=== PATIENT | female | born 1960 | race Caucasian/White ===

== ENCOUNTER 2016-09-11 23:40 | Inpatient (IN) | payer OTHER ==
[~2016-09-11] VITALS: Ht 170.2 cm; Wt 105.0 kg
[~2016-09-11 23:40] MED LIST: ASPI81TA11 PO; DILA2TAB2 PO; DOLO10TA PO; GLIP5 PO; LORA-474 PO; LOVA40TA PO; OMEP40CA2 PO; OXYC1TAB36 PO; THERM PO; WHEEMIS3; [UNRECOGNIZED DRUG - CODE] TOPICAL; [UNRECOGNIZED DRUG - OTHER]
[2016-09-11 23:42] VITALS: BP 181/106; PULSE 95; RESP 16; TEMP 98.6; O2SAT 100
[2016-09-12] VITALS (7 sets, daily range): BP systolic 114–151; BP diastolic 57–82; PULSE 67–81; RESP 16–20; TEMP 97.6–98.8; O2SAT 94–100
[2016-09-12 02:04] LABS: BACTERIA, URINE RARE /hpf; BLOOD, URINE SMALL (NEG); GLUCOSE,URINE NEG (NEG); HYALINE CAST, URINE 2 /lpf (RARE); KETONE, URINE NEG (NEG); MUCUS URINE FEW /lpf (OCC); NITRITE,URINE NEG (NEG); SQUAMOUS EPITHELIAL CELL URINE 4 /hpf (0-5); URINE COLOR YELLOW (YELLW/STRAW)
[2016-09-12 02:05] LABS: COMMENT (UR) CULTURE INDICATED; CULTURE IF INDICATED CULTURE INDICATED
[2016-09-12] MEDS ORDERED: PIPERACIL-TAZO 4.5 GM PREMIX 100 ML IV STA (02:50)
[2016-09-12] MEDS ORDERED: CLINDAMYCIN INJ 900 MG in SODIUM CHLORIDE 0.9% INJ 100 ML IV STA (02:50)
[2016-09-12] MEDS ORDERED: SODIUM CHLOR 0.9% 1000 ML INJ 1,000 ML IV ONE (02:50)
[2016-09-12] MEDS ORDERED: VANCOMYCIN INJ 1,000 MG in SODIUM CHLOR 0.9% 250 ML INJ 250 ML IV STA (02:50)
[2016-09-12] MEDS ORDERED: MORP1TAB24 PO ×2 (02:53)
[2016-09-12] MEDS ORDERED: DICL50TA PO (02:53)
[2016-09-12] MEDS ORDERED: ONDANSETRON HCL 4 MG/2 ML VIAL IV ONE (03:00)
[2016-09-12] MEDS ORDERED: HYDROmorphone HCL PF 1 MG/ML VIAL IV ONE (03:00)
--- NOTE | 2016-09-12 03:00 | PD ---
HPI Chief Complaint: Abdominal Pain Time Seen by Provider: 02:50 Travel History International Travel<30 days: No Contact w/Intl Traveler<30days: No Traveled to known affect area: No History of Present Illness HPI 55-year-old female with history of diabetes, right abdominal wall necrotizing fasciitis status post resection by Dr. Caballero, has finished several courses of antibiotics, here because she states that she started having abdominal pain over the last several days, nausea, vomiting, and has noticed several spots of inflammation, questionable abscess on her right groin and thigh area. She denies any fevers or other issues. She states the pain is currently an 8 out of 10. Modifying Factors: None Associated Signs & Symptoms: Abdominal pain, nausea, vomiting, right groin area questionable abscess Risk Factors: Previous history of necrotizing fasciitis of the right pelvis area PFSH Past Medical History Arthritis: Yes (osteoarthritis of both knees & RT HIP) Asthma: No Autoimmune Disease: No Blood Disorders: No Anxiety: Yes Depression: No Heart Rhythm Problems: No Cancer: No Cardiovascular Problems: Yes High Cholesterol: Yes Chest Pain: No Congestive Heart Failure: No COPD: No Diabetes: Yes Patient Takes Glucophage: No Diminished Hearing: No Endocrine: Yes Genitourinary: Yes (kidney stones) Hepatitis: No Herniated Disk: Yes (L3) Hypertension: Yes (NOT TAKING MEDS) Immune Disorder: No Kidney Stones: Yes Medical other: Yes (ELEVATED CHOLESTEROL) Musculoskeletal: Yes (Right hip) Neurologic: No Psychiatric: No Reproductive: No Respiratory: No Sleep Apnea: No Thyroid Disease: No ?: Not Menopausal: Yes Past Surgical History Abdominal Surgery: Yes (GALLBLADDER REMOVAL 1991) AICD: No Body Medical Devices: right kidney stent Cardiac Surgery: No Cholecystectomy: Yes Ear Surgery: No Endocrine Surgery: No Eye Surgery: No Genitourinary Surgery: Yes (LITHOTRIPSY,URETEROSCOPY 12/2012, SWL 03/2013) Gynecologic Surgery: No Joint Replacement: No Oral Surgery: Yes (Teeth extracted) Pacemaker: No Thoracic Surgery: No Other Surgery: Yes (LITHOTRIPSY DONE 12/13/12, RIGHT ABDOMEN I&D) Social History Alcohol Use: No Tobacco Use: Yes (1/2-1PPD) Substance Use: No Allergies-Medications (Allergen,Severity, Reaction): Coded Allergies: Tinactin (Unverified Allergy, Severe, 09/12/16) TONGUE LIPS THROAT SWELLING Reported Meds & Prescriptions Reported Meds & Active Scripts Active Isotonic Gentamicin 1.2-0.9 mg/ml-% (Gentamicin in Saline) 1 Inj Inj 2 Injection TOPICAL DAILY To flush the abdominal wound with the antibiotic as part of the dressing change. Thera M Plus (Multivitamins/Minerals Therapeutic) 1 Tab 1 Tab PO Q12HR Glucotrol (Glipizide) 5 Mg Tab 5 Mg PO BID@08,16 Omeprazole 40 Mg Cap 40 Mg PO DAILY Lovastatin 40 Mg Tab 40 Mg PO HS Ativan (Lorazepam) 1 Mg Tab 1 Mg PO Q8HR PRN Wheelchair (Device) 1 Mis Mis 1 Ea .ROUTE DIRECTED [syringes 0.5 ml 31 g] ga Bd ultra fine pen needle 0.8mmx 31g, lancets, and test strips Reported Morphine ER (Morphine Sulfate) 15 Mg Tab 15 Mg PO TID Diclofenac Potassium 50 Mg Tab 100 Mg PO BID Morphine ER (Morphine Sulfate) 15 Mg Tab 15 Mg PO BID Review of Systems Except as stated in HPI: all other systems reviewed are Neg Physical Exam Narrative GENERAL: Well-nourished, well-developed middle age white female patient in mild distress. Awake and oriented 3. SKIN: Warm and dry. Right upper thigh, right groin area with areas of induration and mild tenderness on palpation of the inner thigh. There is a 3 cm area of ulceration with whitish eschar, tender to palpation. HEAD: Normocephalic. EYES: No scleral icterus. No injection or drainage. NECK: Supple, trachea midline. CARDIOVASCULAR: Regular rate and rhythm without murmurs, gallops, or rubs. RESPIRATORY: Breath sounds equal bilaterally. No accessory muscle use. GASTROINTESTINAL: Abdomen soft, diffusely tender, right lower quadrant and pelvic area previous surgical site looks clean, dry, healing, with no surrounding erythema, nondistended. MUSCULOSKELETAL: No cyanosis, or edema. BACK: Nontender without obvious deformity. No CVA tenderness. Data Data Last Documented VS Vital Signs Date Time Temp Pulse Resp B/P Pulse Ox O2 Delivery O2 Flow Rate FiO2 09/11/16 23:42 98.6 95 16 181/106 100 Orders Urinalysis - C+S If Indicated (09/12/16 01:24) Urine Culture (09/12/16 01:40) Complete Blood Count With Diff (09/12/16 02:50) Comprehensive Metabolic Panel (09/12/16 02:50) Lactic Acid Sepsis Protocol (09/12/16 02:50) Blood Culture (09/12/16 02:50) Wound Culture And Gram Stain (09/12/16 02:50) Blood Glucose (09/12/16 02:50) Ecg Monitoring (09/12/16 02:50) Iv Access Insert/Monitor (09/12/16 02:50) Oximetry (09/12/16 02:50) Oxygen Administration (09/12/16 02:50) Hydromorphone Pf Inj (Dilaudid Pf Inj) (09/12/16 03:00) Ondansetron Inj (Zofran Inj) (09/12/16 03:00) Piperacil-Tazo 4.5 Gm Premix (Zosyn 4.5 (09/12/16 02:50) Clindamycin Inj (Cleocin Inj) (09/12/16 02:50) Vancomycin Inj (Vancomycin Inj) (09/12/16 02:50) Sodium Chlor 0.9% 1000 Ml Inj (Ns 1000 M (09/12/16 02:50) Ct Abd/Pel W Iv Contrast(Rout) (09/12/16 02:50) Iodixanol 320 Inj (Rad Ct) (Visipaque 32 (09/12/16 04:34) Admit Order (Ed Use Only) (09/12/16 05:05) Place In Observation (09/12/16 ) Vital Signs (Adult) Q4H (09/12/16 05:05) Activity Oob With Assistance (09/12/16 05:05) Intake + Output IKER.QSHIFT (09/12/16 05:05) Diet 1800 Ada Cons Carb (09/12/16 Breakfast) Diet Heart Healthy (09/12/16 Breakfast) Sodium Chloride 0.9% Flush (Ns Flush) (09/12/16 05:15) Sodium Chloride 0.9% Flush (Ns Flush) (09/12/16 09:00) Ondansetron Inj (Zofran Inj) (09/12/16 05:15) Basic Metabolic Panel (Bmp) (09/13/16 06:00) Complete Blood Count With Diff (09/13/16 06:00) Case Management Consult (09/12/16 05:05) Enoxaparin Inj (Lovenox Inj) (09/12/16 09:00) Naloxone Inj (Narcan Inj) (09/12/16 05:15) Bedside Glucose IKER.AC&HS (09/12/16 05:07) ^ Blood Glucose Goal (Criteria (09/12/16 05:07) ^ Hypoglycemia 51 - 69 Mg/Dl (09/12/16 05:07) ^ Hypoglycemia 50 Mg/Dl Or < (09/12/16 05:07) ^ Notify Dr: Other (09/12/16 05:07) Dextrose 50% In Patricia (Vial) Inj (D50w (Vi (09/12/16 05:15) Glucagon Inj (Glucagon Inj) (09/12/16 05:15) Insulin Aspart Supplemtl Scale (Novolog (09/12/16 07:00) Vancomycin Consult Pharmacy (Vancomycin (09/12/16 05:15) Piperacil-Tazo 4.5 Gm Premix (Zosyn 4.5 (09/12/16 09:00) Morphine Inj (Morphine Inj) (09/12/16 05:15) Labs Laboratory Tests Test 09/12/16 09/12/16 01:40 02:54 Urine Color YELLOW Urine Turbidity CLEAR Urine pH 6.0 Urine Specific Corry 1.012 Urine Protein TRACE mg/dL Urine Glucose (UA) NEG mg/dL Urine Ketones NEG mg/dL Urine Occult Blood SMALL Urine Nitrite NEG Urine Bilirubin NEG Urine Urobilinogen LESS THAN 2.0 MG/DL Urine Leukocyte Esterase MOD Urine RBC 1 /hpf Urine WBC 11 /hpf Urine Squamous Epithelial 4 /hpf Cells Urine Amorphous Sediment RARE Urine Bacteria RARE /hpf Urine Hyaline Casts 2 /lpf Urine Mucus FEW /lpf Microscopic Urinalysis Comment CULTURE INDICATED White Blood Count 15.4 TH/MM3 Red Blood Count 6.10 MIL/MM3 Hemoglobin 13.9 GM/DL Hematocrit 43.4 % Mean Corpuscular Volume 71.2 FL Mean Corpuscular Hemoglobin 22.8 PG Mean Corpuscular Hemoglobin 32.1 % Concent Red Cell Distribution Width 18.2 % Platelet Count 456 TH/MM3 Mean Platelet Volume 8.5 FL Neutrophils (%) (Auto) 72.7 % Lymphocytes (%) (Auto) 20.4 % Monocytes (%) (Auto) 4.7 % Eosinophils (%) (Auto) 1.3 % Basophils (%) (Auto) 0.9 % Neutrophils # (Auto) 11.2 TH/MM3 Lymphocytes # (Auto) 3.1 TH/MM3 Monocytes # (Auto) 0.7 TH/MM3 Eosinophils # (Auto) 0.2 TH/MM3 Basophils # (Auto) 0.1 TH/MM3 CBC Comment AUTO DIFF Differential Comment AUTO DIFF CONFIRMED Platelet Estimate HIGH Platelet Morphology Comment NORMAL Ovalocytes 1+ Sodium Level 134 MEQ/L Potassium Level 4.0 MEQ/L Chloride Level 98 MEQ/L Carbon Dioxide Level 24.9 MEQ/L Anion Gap 11 MEQ/L Blood Urea Nitrogen 23 MG/DL Creatinine 1.40 MG/DL Estimat Glomerular Filtration 39 ML/MIN Rate Random Glucose 173 MG/DL Lactic Acid Level 1.3 mmol/L Calcium Level 9.7 MG/DL Total Bilirubin 0.4 MG/DL Aspartate Amino Transf 18 U/L (AST/SGOT) Alanine Aminotransferase 38 U/L (ALT/SGPT) Alkaline Phosphatase 127 U/L Total Protein 9.8 GM/DL Albumin 4.1 GM/DL MDM Medical Decision Making Medical Screen Exam Complete: Yes Emergency Medical Condition: Yes Medical Record Reviewed: Yes Interpretation(s) Laboratory Tests Test 09/12/16 09/12/16 01:40 02:54 Urine Occult Blood SMALL (NEG) Urine Leukocyte Esterase MOD (NEG) Urine WBC 11 /hpf (0-5) Urine Bacteria RARE /hpf (NONE) Urine Mucus FEW /lpf (OCC) White Blood Count 15.4 TH/MM3 (4.0-11.0) Red Blood Count 6.10 MIL/MM3 (4.00-5.30) Mean Corpuscular Volume 71.2 FL (80.0-100.0) Mean Corpuscular Hemoglobin 22.8 PG (27.0-34.0) Red Cell Distribution Width 18.2 % (11.6-17.2) Platelet Count 456 TH/MM3 (150-450) Neutrophils (%) (Auto) 72.7 % (16.0-70.0) Neutrophils # (Auto) 11.2 TH/MM3 (1.8-7.7) Platelet Estimate HIGH (NORMAL) Ovalocytes 1+ (NORMAL) Sodium Level 134 MEQ/L (136-145) Blood Urea Nitrogen 23 MG/DL (7-18) Creatinine 1.40 MG/DL (0.50-1.00) Estimat Glomerular Filtration 39 ML/MIN (>89) Rate Random Glucose 173 MG/DL (74-106) Alkaline Phosphatase 127 U/L (45-117) Total Protein 9.8 GM/DL (6.4-8.2) Last 24 hours Impressions Abdomen/Pelvis CT 09/12/16 0250 Signed Impressions: Service Date/Time: Monday, September 12, 2016 04:21 - CONCLUSION: 1. Interval resolution of bilateral pleural effusions with concomitant atelectatic changes. Lung bases are now clear 2. Stable 4 cm mass lesion in the left adrenal gland. 3. Asymmetry of the kidneys with the left larger than the right. This may represent some vascular compromise to the right kidney. There is stable cortical scarring in both kidneys. 4. Findings a previous resection of the subcutaneous tissues in the right lower abdominal quadrant. This likely represents the area of patient's reported prior necrotizing fasciitis. No active disease. Nothing acute to explain current clinical symptoms. Akira Mann MD Differential Diagnosis Abdominal pains, nausea, vomiting, right groin area ulcerated areasabscess versus infected skin ulcers versus acute intra-abdominal processes versus sepsis Narrative Course appears to have some underlying cellulitis of the right thigh area. Lab work shows significant leukocytosis. IV antibiotics were initiated after cultures were drawn. CAT scan of the abdomen did not reveal any signs of acute intra-abdominal processes. At this point, case was discussed with Dr. Zavala for admission for further treatment. Sepsis Criteria SIRS Criteria (2 or more): Heart rate over 90, WBC > 15951, < 4000 or > 10% bands Sepsis Criteria (SIRS+source): Infect source susp/known Criteria Outcome: Meets sepsis criteria Diagnosis Primary Impression: Sepsis Additional Impressions: UTI (urinary tract infection) Cellulitis of right thigh Admitting Information Admitting Physician Requests: Admit Shawanda De La Torre MD Sep 12, 2016 03:00
[2016-09-12 03:13] LABS: AUTOMATED NEUTROPHIL # 11.2 TH/MM3 (1.8-7.7); BASOPHIL # 0.1 TH/MM3 (0-0.2); BASOPHIL % 0.9 % (0.0-2.0); EOSINOPHIL # 0.2 TH/MM3 (0-0.4); EOSINOPHIL % 1.3 % (0.0-4.0); HEMATOCRIT 43.4 % (35.0-46.0); LYMPH % 20.4 % (9.0-44.0); LYMPHOCYTE # 3.1 TH/MM3 (1.0-4.8); MEAN CELL VOLUME 71.2 FL (80.0-100.0); MEAN CORPUSCULAR HEMOGLOBIN 22.8 PG (27.0-34.0); MEAN CORPUSCULAR HGB CONC 32.1 % (32.0-36.0); MONO % 4.7 % (0.0-8.0); NEUT % 72.7 % (16.0-70.0); PLATELET COUNT 456 TH/MM3 (150-450); RED CELL DISTRIBUTION WIDTH 18.2 % (11.6-17.2); WHITE BLOOD COUNT 15.4 TH/MM3 (4.0-11.0)
[2016-09-12 03:14] LABS: HEMO FLAGS AUTO DIFF
[2016-09-12 03:38] LABS: ALT (GPT) 38 U/L (10-53); ANION GAP 11 MEQ/L (5-15); AST (GOT) 18 U/L (15-37); BICARBONATE 24.9 MEQ/L (21.0-32.0); BLOOD UREA NITROGEN 23 MG/DL (7-18); CHLORIDE 98 MEQ/L (98-107); GLOMERULAR FILTRATION RATE 39 ML/MIN (>89); SODIUM (NA) 134 MEQ/L (136-145)
[2016-09-12 03:40] LABS: ALKALINE PHOSPHATASE 127 U/L (45-117); TOTAL BILIRUBIN ADULT 0.4 MG/DL (0.2-1.0)
[2016-09-12 04:09] LABS: OVALOCYTES 1+ (NORMAL); PLATELET ESTIMATE SMEAR HIGH (NORMAL); PLATELET MORPHOLOGY NORMAL (NORMAL); SCAN/DIFF AUTO DIFF CONFIRMED
[2016-09-12] MEDS ORDERED: IODIXANOL 320 MG/ML 10 ML VIAL (for Rad CT) IV ONE (04:34)
--- NOTE | 2016-09-12 04:56 | RADRPT ---
EXAM DATE/TIME: 09/12/2016 04:21 [facility] COMPARISON: CT ABDOMEN & PELVIS W CONTRAST, May 15, 2016, 17:26. INDICATIONS : Right thigh/groin pain with ulcer, previous right lower quadrant necrotizing fascitis. IV CONTRAST: 50 cc Visipaque (iodixanol) IV ORAL CONTRAST: No oral contrast ingested. RADIATION DOSE: 18.74 CTDIvol (mGy) MEDICAL HISTORY : Cardiovascular disease. Hypertension. Renal calculi.diabetes SURGICAL HISTORY : Cholecystectomy. lithotripsy ENCOUNTER: Initial ACUITY: 3 days PAIN SCALE: 8/10 LOCATION: Right groin TECHNIQUE: Volumetric scanning of the abdomen and pelvis was performed. Using automated exposure control and ad justment of the mA and/or kV according to patient size, radiation dose was kept as low as reasonably achievable to obtain optimal diagnostic quality images. FINDINGS: LOWER LUNGS: Previous effusions with atelectasis have resolved. Lung bases are now clear LIVER: Homogeneous density without lesion. There is no dilation of the biliary tree. No calcified gallston es. SPLEEN: Normal size without lesion. PANCREAS: Within normal limits. KIDNEYS: Asymmetry of the kidneys with the left larger than the right. Bilateral renal cortical scarring. ADRENAL GLANDS: Stable 4 cm mass lesion in the left adrenal gland. The right adrenal gland is radiographically normal VASCULAR: There is no aortic aneurysm. BOWEL/MESENTERY: The stomach, small bowel, and colon demonstrate no acute abnormality. There is no free intraperitone al air or fluid. ABDOMINAL WALL: Findings of prior resection of the subcutaneous tissues of the lower right anterior abdominal wall RETROPERITONEUM: There is no lymphadenopathy. BLADDER: No wall thickening or mass. REPRODUCTIVE: Within normal limits. INGUINAL: There is no lymphadenopathy or hernia. MUSCULOSKELETAL: Within normal limits for patient age. CONCLUSION: 1. Interval resolution of bilateral pleural effusions with concomitant atelectatic changes. Lung base s are now clear 2. Stable 4 cm mass lesion in the left adrenal gland. 3. Asymmetry of the kidneys with the left larger than the right. This may represent some vascular com promise to the right kidney. There is stable cortical scarring in both kidneys. 4. Findings a previous resection of the subcutaneous tissues in the right lower abdominal quadrant. T his likely represents the area of patient's reported prior necrotizing fasciitis. No active disease. Nothing acute to explain current clinical symptoms. Akira Mann MD on September 12, 2016 at 4:49 Board Certified Radiologist. This report was verified electronically.
[2016-09-12] MEDS ORDERED: NALOXONE HCL 0.4 MG/ML AMP IV PRN (05:15)
[2016-09-12] MEDS ORDERED: MORPHINE SULFATE 4 MG/ML INJ IV PUSH PRN (05:15)
[2016-09-12] MEDS ORDERED: DEXTROSE 50% IN WATER 50 ML VIAL(D50) IV PUSH PRN (05:15)
[2016-09-12] MEDS ORDERED: SODIUM CHLORIDE 0.9% FLUSH 5 ML FLUSH FLUSH PRN (05:15)
[2016-09-12] MEDS ORDERED: ONDANSETRON HCL 4 MG/2 ML VIAL IVP PRN (05:15)
[2016-09-12] MEDS ORDERED: Vancomycin Consult Pharmacy 1 EA OTHER SCH (05:15)
[2016-09-12] MEDS ORDERED: GLUCAGON 1 MG/ML VIAL OTHER PRN (05:15)
[2016-09-12] MEDS: INSULIN ASPART SUPPLEMENTAL SCALE SQ SCH ×4 (07:00→21:00)
[2016-09-12] MEDS ORDERED: cloNIDine HCL 0.1 MG TAB PO PRN (08:15)
--- NOTE | 2016-09-12 08:39 | HHI.HP ---
cc: Alex Castrejon DO [facility] Service [facility] Primary Care Physician Alex Castrejon DO Admission Diagnosis right thigh cellulitis/sepsis Diagnoses: (1) Sepsis (2) Cellulitis of right thigh (3) Abdominal pain (4) Diabetes mellitus type 2 (5) Dyslipidemia (6) Benign essential hypertension (7) Tobacco abuse Chief Complaint: Abdominal pain Travel History International Travel<30 Days: No Contact w/Intl Traveler <30 Da: No Traveled to Known Affected Are: No Sepsis Criteria SIRS Criteria (2 or more): Heart rate over 90, WBC > 62894, < 4000 or > 10% bands Sepsis Criteria (SIRS+source): Infect source susp/known Criteria Outcome: Meets sepsis criteria History of Present Illness The patient is a 55-year-old female with history of diabetes and hypertension. She was hospitalized last May for treatment of right abdominal wall necrotizing fasciitis. She had multiple surgeries and that wound has now healed. She states that over the past week she has developed worsening abdominal pain which she describes as sharp and stabbing. The pain is in the mid upper abdomen and does not radiate. She denies nausea or vomiting. She has had some constipation, but that resolved with milk of magnesia. She developed a new wound on the right upper thigh about a week ago. It is erythematous and has an ulcerative center. She also has an abscess forming on the inner upper right thigh. She reports fever, chills, and night sweats. Review of Systems Constitutional: COMPLAINS OF: Fever, Chills, Night Sweats Eyes: DENIES: Blurred vision, Vision loss Ears, nose, mouth, throat: DENIES: Hearing loss Respiratory: DENIES: Cough, Wheezing, Sputum production, Shortness of breath Cardiovascular: DENIES: Chest pain, Palpitations, Dyspnea on Exertion, Lower Extremity Edema Gastrointestinal: COMPLAINS OF: Abdominal pain, Constipation, DENIES: Diarrhea , Nausea, Vomiting Genitourinary: DENIES: Urinary frequency, Urinary incontinence, Urgency, Hematuria, Dysuria, Nocturia Musculoskeletal: DENIES: Joint pain, Muscle aches Integumentary: DENIES: Pruritus Hematologic/lymphatic: DENIES: Bruising Neurologic: DENIES: Headache Past Family Social History Past Medical History Diabetes mellitus type 2 Osteoarthritis History of necrotizing fasciitis Hypertension Hyperlipidemia GERD History of kidney stones Past Surgical History Lithotripsy 2012 Cholecystectomy 1991 Ureteroscopy with stent placement 2012 Tooth extraction Incision and drainage with wide debridement of the flanks, pannus, labia with wound VAC placement 2016 Reported Medications Isotonic Gentamicin 1.2-0.9 mg/ml-% (Gentamicin in Saline) 1 Inj Inj 2 Injection TOPICAL DAILY To flush the abdominal wound with the antibiotic as part of the dressing change. Thera M Plus (Multivitamins/Minerals Therapeutic) 1 Tab 1 Tab PO Q12HR Glucotrol (Glipizide) 5 Mg Tab 5 Mg PO BID@08,16 Omeprazole 40 Mg Cap 40 Mg PO DAILY Lovastatin 40 Mg Tab 40 Mg PO HS Ativan (Lorazepam) 1 Mg Tab 1 Mg PO Q8HR PRN [syringes 0.5 ml 31 g] ga Bd ultra fine pen needle 0.8mmx 31g, lancets, and test strips Morphine ER (Morphine Sulfate) 15 Mg Tab 15 Mg PO TID Diclofenac Potassium 50 Mg Tab 100 Mg PO BID Morphine ER (Morphine Sulfate) 15 Mg Tab 15 Mg PO BID Allergies: Coded Allergies: Tinactin (Unverified Allergy, Severe, 09/12/16) TONGUE LIPS THROAT SWELLING Family History Diabetes Hypertension Glaucoma Social History Smokes one half pack per day. Denies alcohol or illicit drug use. Physical Exam Vital Signs Vital Signs Date Time Temp Pulse Resp B/P Pulse Ox O2 Delivery O2 Flow Rate FiO2 09/12/16 07:27 98.6 67 16 151/82 99 Room Air 09/12/16 07:27 16 09/12/16 06:00 81 16 114/67 97 09/12/16 04:00 98 Nasal Cannula 2 09/12/16 04:00 76 16 114/67 96 09/11/16 23:42 98.6 95 16 181/106 100 Physical Exam GENERAL: Obese female in no acute distress. HEENT: Normocephalic, atraumatic. Pupils equal, round and reactive. Extraocular movements intact. No scleral icterus. No injection or drainage. Oropharynx is clear. Mucous membranes are moist. CARDIOVASCULAR: Regular rate and rhythm without murmurs, gallops, or rubs. RESPIRATORY: Clear to auscultation. No wheezes, rales, or rhonchi. Breathing is non-labored. GASTROINTESTINAL: Abdomen soft, nondistended. Tender to palpation diffusely, worse in the midepigastric region. EXTREMITIES: No lower extremity edema. No calf tenderness. PSYCH: Alert and oriented x 3. SKIN: Healed surgical scar in the right lower abdomen. There is erythema, induration, and fluctuance of the right upper inner thigh. There is a circular lesion on the right upper thigh with an ulcerative center and surrounding erythema. Laboratory Laboratory Tests Test 09/12/16 09/12/16 01:40 02:54 Urine Color YELLOW Urine Turbidity CLEAR Urine pH 6.0 Urine Specific Cade 1.012 Urine Protein TRACE Urine Glucose (UA) NEG Urine Ketones NEG Urine Occult Blood SMALL Urine Nitrite NEG Urine Bilirubin NEG Urine Urobilinogen LESS THAN 2.0 Urine Leukocyte Esterase MOD Urine RBC 1 Urine WBC 11 Urine Squamous Epithelial 4 Cells Urine Amorphous Sediment RARE Urine Bacteria RARE Urine Hyaline Casts 2 Urine Mucus FEW Microscopic Urinalysis Comment CULTURE INDICATED White Blood Count 15.4 Red Blood Count 6.10 Hemoglobin 13.9 Hematocrit 43.4 Mean Corpuscular Volume 71.2 Mean Corpuscular Hemoglobin 22.8 Mean Corpuscular Hemoglobin 32.1 Concent Red Cell Distribution Width 18.2 Platelet Count 456 Mean Platelet Volume 8.5 Neutrophils (%) (Auto) 72.7 Lymphocytes (%) (Auto) 20.4 Monocytes (%) (Auto) 4.7 Eosinophils (%) (Auto) 1.3 Basophils (%) (Auto) 0.9 Neutrophils # (Auto) 11.2 Lymphocytes # (Auto) 3.1 Monocytes # (Auto) 0.7 Eosinophils # (Auto) 0.2 Basophils # (Auto) 0.1 CBC Comment AUTO DIFF Differential Comment AUTO DIFF CONFIRMED Platelet Estimate HIGH Platelet Morphology Comment NORMAL Ovalocytes 1+ Sodium Level 134 Potassium Level 4.0 Chloride Level 98 Carbon Dioxide Level 24.9 Anion Gap 11 Blood Urea Nitrogen 23 Creatinine 1.40 Estimat Glomerular Filtration 39 Rate Random Glucose 173 Lactic Acid Level 1.3 Calcium Level 9.7 Total Bilirubin 0.4 Aspartate Amino Transf 18 (AST/SGOT) Alanine Aminotransferase 38 (ALT/SGPT) Alkaline Phosphatase 127 Total Protein 9.8 Albumin 4.1 Date/Time Procedure Status Source Growth 09/12/16 03:30 Aerobic Blood Culture Received Blood Peripheral Pending 09/12/16 03:30 Anaerobic Blood Culture Received Blood Peripheral Pending 09/12/16 02:54 Gram Stain Received Wound Thigh Pending 09/12/16 02:54 Wound Culture Received Wound Thigh Pending 09/12/16 01:40 Urine Culture Received Urine Clean Catch Pending Result Diagram: 09/12/16 0254 09/12/16 0254 Imaging Last Impressions Abdomen/Pelvis CT 09/12/16 0250 Signed Impressions: Service Date/Time: Monday, September 12, 2016 04:21 - CONCLUSION: 1. Interval resolution of bilateral pleural effusions with concomitant atelectatic changes. Lung bases are now clear 2. Stable 4 cm mass lesion in the left adrenal gland. 3. Asymmetry of the kidneys with the left larger than the right. This may represent some vascular compromise to the right kidney. There is stable cortical scarring in both kidneys. 4. Findings a previous resection of the subcutaneous tissues in the right lower abdominal quadrant. This likely represents the area of patient's reported prior necrotizing fasciitis. No active disease. Nothing acute to explain current clinical symptoms. Akira Mann MD Assessment and Plan Assessment and Plan 1. Abdominal pain: Uncertain etiology. Patient had multiple surgeries in May of last year for necrotizing fasciitis of the flanks, pannus. 2. Sepsis: Secondary to cellulitis. Patient meets criteria with tachycardia, leukocytosis. Continue vancomycin and Zosyn. Pharmacy to dose vancomycin. 3. Right upper thigh cellulitis, abscess: IV antibiotics. Consult general surgery for likely incision and drainage. 4. Diabetes mellitus: Hold glipizide. Monitor Accu-Cheks and cover with sliding scale insulin. 5. Hypertension: Blood pressure has been intermittently elevated. Patient is not on antihypertensive medications. Clonidine available as needed. 6. Hyperlipidemia: Continue statin. 7. GERD: Continue PPI. 8. DVT prophylaxis: SCDs, CORI hose, Lovenox. 9. Acute kidney injury: Monitor BUN and creatinine. IV fluids. Code Status Full code Mikel Melo MD Sep 12, 2016 08:39
[2016-09-12] MEDS: ENOXAPARIN SODIUM 40 MG/0.4 ML SYRINGE SQ SCH (08:44)
[2016-09-12] MEDS: PIPERACIL-TAZO 4.5 GM PREMIX 100 ML IV SCH ×3 (08:45→21:39)
[2016-09-12] MEDS ORDERED: HYDROmorphone HCL PF 1 MG/ML VIAL IV PUSH PRN ×4 (09:00→15:00)
[2016-09-12] MEDS: SODIUM CHLORIDE 0.9% FLUSH 5 ML FLUSH FLUSH SCH ×2 (09:00→21:11)
[2016-09-12] MEDS: PANTOPRAZOLE SOD 40 MG DELAYED RELEASE TAB PO SCH (10:09)
[2016-09-12] MEDS: SODIUM CHLOR 0.9% 1000 ML INJ 1,000 ML IV SCH ×2 (10:09→20:10)
[2016-09-12] MEDS: MULTIVITAMINS/MINERALS THERAPEUTIC TAB PO SCH ×2 (10:09→21:11)
[2016-09-12] MEDS: DICLOFENAC SODIUM 50 MG DELAYED RELEASE TAB PO SCH ×2 (12:13→21:11)
[2016-09-12] MEDS: VANCOMYCIN INJ 2,000 MG in SODIUM CHLORID 0.9% 500 ML INJ 500 ML IV SCH (12:15)
[2016-09-12] MEDS ORDERED: HYDROmorphone HCL PF 1 MG/ML VIAL IV PUSH ONE ×2 (12:15→14:30)
[2016-09-12] MEDS ORDERED: LIDOCAINE 1%/EPINEPHrine 1:100,000 SOLN 30 ML VIAL OTHER SCH (12:45)
[2016-09-12] MEDS ORDERED: LIDOCAINE 1%/EPINEPHrine 1:100,000 SOLN 20 ML VIAL OTHER SCH (14:00)
[2016-09-12] MEDS: LORazepam 1 MG TAB PO PRN ×2 (14:07→23:29)
--- NOTE | 2016-09-12 17:17 | MB ---
cc: ROSS CASH MD DATE OF CONSULTATION: 09/12/2016 REASON FOR CONSULTATION: Right thigh abscess. HISTORY OF PRESENT ILLNESS: The patient is a 54 year-old female, multiple medical issues including diabetes, hypertension, she has a previous history and is known to have surgical service due to the extensive lower abdominal perineal necrotizing fasciitis. She underwent multiple surgeries and debridements and eventually improved from this. She was at rehab doing well and has since been discharged from there as well. She states that she presented with a new onset of; 1. Abdominal pain. 2. Right thigh pain with abscess. She was evaluated and placed on initial dose of antibiotics without much improvement. Her antibiotic regimen was changed and she subsequently has recently finished her antibiotics. She states she has developed a red, erythematous. Small lesion in the posterior thigh that continues to increase in size. This has been going on for approximately one week or so ago and it continues to get worse, have increased pain and the patient reports subjective fevers and chills. She states she is currently on diabetic medication and her sugars are actually relatively well controlled per the patient. Further she complains of some of right-sided, right upper quadrant abdominal pain. She states this pain has been going on for the last four days. Intermittent sharp pains. Worse with movement better with lying still, has some association with bleeding. She has already previously had a cholecystectomy. She denies any significant nausea, vomiting. PAST MEDICAL HISTORY 1. Arthritis. 2. Necrotizing fasciitis 3. Hypertension 4. Hyperlipidemia 5. Reflux. 6. Kidney stones. PAST SURGICAL HISTORY 1. Rectopexy. 2. Cholecystectomy. 3. Ureteroscope with stent placement. 4. Tooth extraction. 5. Incision and drainage. 6. Vac placement. 7. Multiple perineal lower abdominal debridements and surgeries for necrotizing fasciitis. MEDICATIONS See electronic medical record. ALLERGIES TINACTIN FAMILY HISTORY Diabetes, hypertension, glaucoma. SOCIAL HISTORY The patient smokes half pack and status per day denies EtOH or IVDA. REVIEW OF SYSTEMS IN GENERAL: Complains of fevers, chills. HEAD, EYES, EARS, NOSE, AND THROAT: Denies eye pain, blurry vision. RESPIRATORY: Denies cough or wheeze. CARDIOVASCULAR SYSTEM: Denies palpitations, chest pain. GASTROINTESTINAL: Complains of abdominal pain. Denies nausea or vomiting. GENITOURINARY: Denies dysuria, hematuria. MUSCULOSKELETAL: Denies myalgias. Complains of arthralgias. INTEGUMENT: Complaints of abscess thigh. NEUROLOGIC: Denies easy bruising, bleeding. NEUROLOGIC: Denies headaches or numbness. PSYCHIATRIC: Denies change mood, . IN GENERAL: The patient is in acute distress. PHYSICAL EXAMINATION: IN GENERAL: The patient is in no acute distress. VITAL SIGNS: Temperature 98.6, pulse 81, respirations 16, blood pressure 114/67, saturation 100%. HEAD, EYES, EARS, NOSE, AND THROAT: Pupils equal, round, reactive to light and accommodation, Oral tract. NECK: Supple. Trachea midline. RESPIRATORY: Bilateral expansion. No wheeze. ABDOMEN: The abdomen is soft. Positive tenderness to palpation right upper quadrant. No rebound, no guarding, well healing with granulation tissue right lower lateral pannus area and right groin, healing, dressings in place, dry and intact. EXTREMITIES: The right lower extremity posterior medial thigh or by a 2 cm abscess cavity tenderness to palpation. Positive edema. No evidence of drainage. Moving all the extremities warm, well-perfused. NEUROLOGIC: GCS of 15, 5/5 motor. INTEGUMENT: Healing wound as described right sided pannus area, granulation abscess, right lower extremity, ulceration anterior right thigh. PSYCHIATRIC: Good insight good judgment. GENITOURINARY: healed right labial scarring. LABORATORY AND DIAGNOSTIC DATA WBC of 15.4, hemoglobin 32.1, Hematocrit 43.4, platelet count 456, sodium 134. Potassium 0.10, chloride 78, BUN 28, creatinine 1.4. <<6:36>> 48, alkaline phosphatase 137. Albumin 4.1, Urinalysis regular nitrate, <<6:41>> white blood cell. RADIOLOGY CT abdomen and pelvis <<7:06>> resolution of fusions, 4 cm stable. Left adrenal gland mass. Small right kidney, previous resection of the subcutaneous tissue right lower quadrant. Extremity abscess not viewable on CT of the abdomen and pelvis. ASSESSMENT 55-year-old female history of necrotizing fasciitis presents with right thigh abscess, abdominal pain. PLAN After full clinical radiologic laboratory workup the patient with leukocytosis and abscess cavity and the right lower extremity at this point agree with IV antibiotics pain control. We will plan to the to the incision drainage at bedside and the PACU. Discussed with the patient the risk of eight and the risk. Progressing to necrotizing fasciitis however, this is likely uncommon does not appear to be and necrotizing fasciitis at this time. Again we will attempt drainage at bedside. I have discussed with the patient in detail. PROCEDURE NOTE The patient was prepped and draped in usual sterile fashion and time-out done stating correct patient, procedure and surgical site. PREOPERATIVE DIAGNOSIS Right thigh abscess. POSTOPERATIVE DIAGNOSIS Right thigh abscess. PROCEDURE PREFORMED: A bedside incision and drainage of abscess. ANESTHESIA 1% lidocaine with epinephrine [address] Ross Cash MULTI SITE LEASING CONSULTANT: None. COMPLICATIONS: None. WOUND: Wound classification dirty SPECIMENS Purulent material sent for microbiology INDICATION The patient 52-year-old female history of necrotizing fasciitis presents with new onset of recurrent right lower extremity abscess. Discussed with the patient regarding operative intervention in the OR versus bedside debridement. The patient elects to undergo a bedside debridement. We will continue as planned. PROCEDURE IN DETAIL The patient was again prepped and draped in sterile fashion to towels were placed around the wound. Lidocaine and anesthetic was given, 1 mg of Dilaudid was also given. He had a small incision made in abscess cavity with extruding purulent material This was cultured, swabbed and sent to microbiology irrigation process was used to irrigate the cavity. This was done until the fluid was clear. The cavity was then packed with probiotic 4x4 dressing. Hemostasis obtained. The patient tolerated procedure and there is no complication. FINDINGS Small cavity with purulent material. MD BECKIE Farmer/marty /2:02 PM /4:16 PM
[2016-09-12] MEDS: oxyCODONE/ACETAMINOPHEN 5 MG/325 MG TAB PO PRN (17:34)
[2016-09-12] MEDS: PRAVASTATIN SOD 40 MG TAB PO SCH (21:11)
[2016-09-12] MEDS: HYDROmorphone HCL PF 1 MG/ML VIAL IV PUSH PRN (21:12)
[2016-09-13] VITALS (7 sets, daily range): BP systolic 120–152; BP diastolic 60–80; PULSE 66–87; RESP 14–20; TEMP 97–98.8; O2SAT 96–100
[2016-09-13] MEDS: PIPERACIL-TAZO 4.5 GM PREMIX 100 ML IV SCH ×4 (02:30→19:59)
[2016-09-13] MEDS: HYDROmorphone HCL PF 1 MG/ML VIAL IV PUSH PRN ×2 (02:31→23:58)
[2016-09-13 05:30] LABS: AUTOMATED NEUTROPHIL # 6.6 TH/MM3 (1.8-7.7); BASOPHIL # 0.1 TH/MM3 (0-0.2); BASOPHIL % 1.1 % (0.0-2.0); EOSINOPHIL # 0.2 TH/MM3 (0-0.4); EOSINOPHIL % 2.6 % (0.0-4.0); HEMATOCRIT 36.2 % (35.0-46.0); LYMPH % 20.1 % (9.0-44.0); LYMPHOCYTE # 1.9 TH/MM3 (1.0-4.8); MEAN CELL VOLUME 72.2 FL (80.0-100.0); MEAN CORPUSCULAR HEMOGLOBIN 22.5 PG (27.0-34.0); MEAN CORPUSCULAR HGB CONC 31.1 % (32.0-36.0); MONO % 6.3 % (0.0-8.0); NEUT % 69.9 % (16.0-70.0); PLATELET COUNT 307 TH/MM3 (150-450); RED BLOOD COUNT 5.01 MIL/MM3 (4.00-5.30); WHITE BLOOD COUNT 9.4 TH/MM3 (4.0-11.0)
[2016-09-13 05:50] LABS: BICARBONATE 24.5 MEQ/L (21.0-32.0); POTASSIUM 4.7 MEQ/L (3.5-5.1)
[2016-09-13] MEDS: INSULIN ASPART SUPPLEMENTAL SCALE SQ SCH ×4 (06:02→20:00)
[2016-09-13] MEDS: VANCOMYCIN INJ 2,000 MG in SODIUM CHLORID 0.9% 500 ML INJ 500 ML IV SCH ×2 (06:12→23:58)
[2016-09-13 06:16] LABS: HEMO FLAGS AUTO DIFF
[2016-09-13 07:58] LABS: SCAN/DIFF AUTO DIFF CONFIRMED
[2016-09-13] MEDS: SODIUM CHLOR 0.9% 1000 ML INJ 1,000 ML IV SCH ×2 (08:05→19:59)
[2016-09-13] MEDS: SODIUM CHLORIDE 0.9% FLUSH 5 ML FLUSH FLUSH SCH ×2 (09:00→19:59)
--- NOTE | 2016-09-13 09:47 | MR ---
cc: ROSS CASH MD DATE: 09/12/2016 PROCEDURE NOTE The patient was prepped and draped in usual sterile fashion and time-out done stating correct patient, procedure and surgical site. PREOPERATIVE DIAGNOSIS Right thigh abscess. POSTOPERATIVE DIAGNOSIS Right thigh abscess. PROCEDURE PREFORMED: A bedside incision and drainage of abscess. ANESTHESIA 1% lidocaine with epinephrine [address] Ross Cash CREMATORY OPERATOR: None. COMPLICATIONS: None. WOUND: Wound classification dirty SPECIMENS Purulent material sent for microbiology INDICATION The patient 52-year-old female history of necrotizing fasciitis presents with new onset of recurrent right lower extremity abscess. Discussed with the patient regarding operative intervention in the OR versus bedside debridement. The patient elects to undergo a bedside debridement. We will continue as planned. PROCEDURE IN DETAIL The patient was again prepped and draped in sterile fashion to towels were placed around the wound. Lidocaine and anesthetic was given, 1 mg of Dilaudid was also given. He had a small incision made in abscess cavity with extruding purulent material This was cultured, swabbed and sent to microbiology irrigation process was used to irrigate the cavity. This was done until the fluid was clear. The cavity was then packed with probiotic 4x4 dressing. Hemostasis obtained. The patient tolerated procedure and there is no complication. FINDINGS Small cavity with purulent material. MD CAMMY FarmerN/fadia /2:02 PM /9:39 AM .2
--- NOTE | 2016-09-13 09:47 | MB ---
cc: ANTONINO BOB MD DATE OF CONSULTATION: 09/12/2016 REASON FOR CONSULTATION: Right thigh abscess. HISTORY OF PRESENT ILLNESS: The patient is a 54 year-old female, multiple medical issues including diabetes, hypertension, she has a previous history and is known to have surgical service due to the extensive lower abdominal perineal necrotizing fasciitis. She underwent multiple surgeries and debridements and eventually improved from this. She was at rehab doing well and has since been discharged from there as well. She states that she presented with a new onset of; 1. Abdominal pain. 2. Right thigh pain with abscess. She was evaluated and placed on initial dose of antibiotics without much improvement. Her antibiotic regimen was changed and she subsequently has recently finished her antibiotics. She states she has developed a red, erythematous. Small lesion in the posterior thigh that continues to increase in size. This has been going on for approximately one week or so ago and it continues to get worse, have increased pain and the patient reports subjective fevers and chills. She states she is currently on diabetic medication and her sugars are actually relatively well controlled per the patient. Further she complains of some of right-sided, right upper quadrant abdominal pain. She states this pain has been going on for the last four days. Intermittent sharp pains. Worse with movement better with lying still, has some association with bleeding. She has already previously had a cholecystectomy. She denies any significant nausea, vomiting. PAST MEDICAL HISTORY 1. Arthritis. 2. Necrotizing fasciitis 3. Hypertension 4. Hyperlipidemia 5. Reflux. 6. Kidney stones. PAST SURGICAL HISTORY 1. Rectopexy. 2. Cholecystectomy. 3. Ureteroscope with stent placement. 4. Tooth extraction. 5. Incision and drainage. 6. Vac placement. 7. Multiple perineal lower abdominal debridements and surgeries for necrotizing fasciitis. MEDICATIONS See electronic medical record. ALLERGIES TINACTIN FAMILY HISTORY Diabetes, hypertension, glaucoma. SOCIAL HISTORY The patient smokes half pack and status per day denies EtOH or IVDA. REVIEW OF SYSTEMS IN GENERAL: Complains of fevers, chills. HEAD, EYES, EARS, NOSE, AND THROAT: Denies eye pain, blurry vision. RESPIRATORY: Denies cough or wheeze. CARDIOVASCULAR SYSTEM: Denies palpitations, chest pain. GASTROINTESTINAL: Complains of abdominal pain. Denies nausea or vomiting. GENITOURINARY: Denies dysuria, hematuria. MUSCULOSKELETAL: Denies myalgias. Complains of arthralgias. INTEGUMENT: Complaints of abscess thigh. NEUROLOGIC: Denies easy bruising, bleeding. NEUROLOGIC: Denies headaches or numbness. PSYCHIATRIC: Denies change mood, . IN GENERAL: The patient is in acute distress. PHYSICAL EXAMINATION: IN GENERAL: The patient is in no acute distress. VITAL SIGNS: Temperature 98.6, pulse 81, respirations 16, blood pressure 114/67, saturation 100%. HEAD, EYES, EARS, NOSE, AND THROAT: Pupils equal, round, reactive to light and accommodation, Oral tract. NECK: Supple. Trachea midline. RESPIRATORY: Bilateral expansion. No wheeze. ABDOMEN: The abdomen is soft. Positive tenderness to palpation right upper quadrant. No rebound, no guarding, well healing with granulation tissue right lower lateral pannus area and right groin, healing, dressings in place, dry and intact. EXTREMITIES: The right lower extremity posterior medial thigh or by a 2 cm abscess cavity tenderness to palpation. Positive edema. No evidence of drainage. Moving all the extremities warm, well-perfused. NEUROLOGIC: GCS of 15, 5/5 motor. INTEGUMENT: Healing wound as described right sided pannus area, granulation abscess, right lower extremity, ulceration anterior right thigh. PSYCHIATRIC: Good insight good judgment. GENITOURINARY: healed right labial scarring. LABORATORY AND DIAGNOSTIC DATA WBC of 15.4, hemoglobin 32.1, Hematocrit 43.4, platelet count 456. Sodium 134, potassium 4.0, chloride 98, BUN 23, creatinine 1.4, AST 18, ALT 38, alkaline phosphatase 127, albumin 4.1, Urinalysis regular nitrate, 11 white blood cell. RADIOLOG[address] abdomen and pelvis <<7:06>> effusions, 4 cm stable. Left adrenal gland mass. Small right kidney, previous resection of the subcutaneous tissue right lower quadrant. Extremity abscess not viewable on CT of the abdomen and pelvis. ASSESSMENT 55-year-old female history of necrotizing fasciitis presents with right thigh abscess, abdominal pain. PLAN After full clinical radiologic laboratory workup the patient with leukocytosis and abscess cavity and the right lower extremity at this point agree with IV antibiotics pain control. We will plan to the to the incision drainage at bedside with packing. Discussed with the patient the risk of progressing to necrotizing fasciitis, however, this is likely uncommon does not appear to be and necrotizing fasciitis at this time. Again we will attempt drainage at bedside. I have discussed with the patient in detail. MD BECKIE Farmer/fadia /2:02 PM /9:44 AM .1
[2016-09-13] MEDS: ENOXAPARIN SODIUM 40 MG/0.4 ML SYRINGE SQ SCH (09:48)
[2016-09-13] MEDS: oxyCODONE/ACETAMINOPHEN 10 MG/325 MG TAB PO PRN ×4 (09:49→23:57)
[2016-09-13] MEDS: DICLOFENAC SODIUM 50 MG DELAYED RELEASE TAB PO SCH ×2 (09:50→19:59)
[2016-09-13] MEDS: MULTIVITAMINS/MINERALS THERAPEUTIC TAB PO SCH ×2 (09:50→19:59)
[2016-09-13] MEDS: PANTOPRAZOLE SOD 40 MG DELAYED RELEASE TAB PO SCH (09:50)
[2016-09-13] MEDS ORDERED: PNEUMOCOCCAL POLYVALENT INJ 25 MCG/0.5 ML SYR IM ONE (10:00)
[2016-09-13] MEDS: LORazepam 1 MG TAB PO PRN ×2 (11:26→19:59)
[2016-09-13] MEDS: NICOTINE 21 MG/24 HR PATCH TD SCH (15:02)
--- NOTE | 2016-09-13 16:19 | HHI.PR ---
Subjective Remarks Laying in bed comfortable, afebrile, right thigh wound act and in dressing, she is afebrile Objective Vitals Vital Signs Date Time Temp Pulse Resp B/P Pulse Ox O2 Delivery O2 Flow Rate FiO2 09/13/16 15:57 98.8 70 16 142/63 99 09/13/16 11:58 98.5 71 14 130/64 96 09/13/16 08:26 97.6 66 16 136/60 99 09/13/16 04:25 98.4 87 18 121/68 97 09/13/16 03:01 12 09/13/16 00:39 97.0 78 18 152/76 96 09/12/16 20:06 98.8 72 20 117/57 97 09/12/16 18:47 18 I/O 09/12/16 09/12/16 09/12/16 09/13/16 09/13/16 09/13/16 06:59 14:59 22:59 06:59 14:59 22:59 Intake Total 200 ml 300 ml Balance 200 ml 300 ml Intake Oral 200 ml 300 ml # Voids 1 Result Diagram: 09/13/16 0427 09/13/16 042 Imaging Last Impressions Abdomen/Pelvis CT 09/12/16 0250 Signed Impressions: Service Date/Time: Monday, September 12, 2016 04:21 - CONCLUSION: 1. Interval resolution of bilateral pleural effusions with concomitant atelectatic changes. Lung bases are now clear 2. Stable 4 cm mass lesion in the left adrenal gland. 3. Asymmetry of the kidneys with the left larger than the right. This may represent some vascular compromise to the right kidney. There is stable cortical scarring in both kidneys. 4. Findings a previous resection of the subcutaneous tissues in the right lower abdominal quadrant. This likely represents the area of patient's reported prior necrotizing fasciitis. No active disease. Nothing acute to explain current clinical symptoms. Akira Mann MD Objective Remarks GENERAL: This is a well-nourished, well-developed patient, in no apparent distress. SKIN: Right thigh packed wound and dressing as well as right groin HEAD: Atraumatic. Normocephalic. EYES: Pupils equal round and reactive. Extraocular motions intact. No scleral icterus. ENT: Nose without bleeding, or drainage, Airway patent. NECK: Trachea midline. Supple CARDIOVASCULAR: Regular rate and rhythm without murmurs, gallops, or rubs. RESPIRATORY: Fair air entry bilaterally. No wheezes, rales, or rhonchi. GASTROINTESTINAL: Abdomen soft, non-tender, nondistended. Positive bowel sounds MUSCULOSKELETAL: Extremities without clubbing, cyanosis, or edema. Pedal pulses appreciated NEUROLOGICAL: Awake and alert. Moves all extremity. Normal speech.no focal neurological deficit A/P Problem List: (1) Sepsis ICD Code: A41.9 Status: Acute (2) Cellulitis of right thigh ICD Code: L03.115 Status: Acute (3) Abdominal pain ICD Code: R10.9 Status: Acute (4) Diabetes mellitus type 2 ICD Code: 250.00 Status: Chronic (5) Dyslipidemia ICD Code: 272.8 Status: Chronic (6) Benign essential hypertension ICD Code: 401.1 Status: Chronic (7) Tobacco abuse ICD Code: Z72.0 Status: Acute Assessment and Plan 09/13/16: Stable no fever or chills, monitor culture and CBC in a.m. A/P: 1. Abdominal pain: Uncertain etiology. Patient had multiple surgeries in May of last year for necrotizing fasciitis of the flanks, pannus. 2. Sepsis: Secondary to cellulitis. Patient meets criteria with tachycardia, leukocytosis. Continue vancomycin and Zosyn. Pharmacy to dose vancomycin. 3. Right upper thigh cellulitis, abscess: IV antibiotics. Appreciate general surgery consult status post incision and drainage and packing 4. Diabetes mellitus: Hold glipizide. Monitor Accu-Cheks and cover with sliding scale insulin. 5. Hypertension: Blood pressure has been intermittently elevated. Patient is not on antihypertensive medications. Clonidine available as needed. 6. Hyperlipidemia: Continue statin. 7. GERD: Continue PPI. 8. DVT prophylaxis: SCDs, CORI ritter Lovenox. 9. Acute kidney injury: Improving creatinine trending down, Monitor BUN and creatinine. IV fluids Owen Duff MD Sep 13, 2016 16:19
--- NOTE | 2016-09-13 17:47 | HHI.PR ---
Subjective Subjective Notes no acute issues, a febrile Objective Vitals/I&O Vital Signs Date Time Temp Pulse Resp B/P Pulse Ox O2 Delivery O2 Flow Rate FiO2 09/13/16 15:57 98.8 70 16 142/63 99 09/12/16 07:27 Room Air 09/12/16 04:00 2 Labs Laboratory Tests Test 09/13/16 04:27 White Blood Count 9.4 Red Blood Count 5.01 Hemoglobin 11.3 Hematocrit 36.2 Mean Corpuscular Volume 72.2 Mean Corpuscular Hemoglobin 22.5 Mean Corpuscular Hemoglobin 31.1 Concent Red Cell Distribution Width 18.0 Platelet Count 307 Mean Platelet Volume 8.6 Neutrophils (%) (Auto) 69.9 Lymphocytes (%) (Auto) 20.1 Monocytes (%) (Auto) 6.3 Eosinophils (%) (Auto) 2.6 Basophils (%) (Auto) 1.1 Neutrophils # (Auto) 6.6 Lymphocytes # (Auto) 1.9 Monocytes # (Auto) 0.6 Eosinophils # (Auto) 0.2 Basophils # (Auto) 0.1 CBC Comment AUTO DIFF Differential Comment AUTO DIFF CONFIRMED Sodium Level 141 Potassium Level 4.7 Chloride Level 107 Carbon Dioxide Level 24.5 Anion Gap 10 Blood Urea Nitrogen 20 Creatinine 1.24 Estimat Glomerular Filtration 45 Rate Random Glucose 148 Calcium Level 9.0 Date/Time Procedure Status Source Growth 09/12/16 14:29 Gram Stain - Final Resulted Wound Thigh 09/12/16 14:29 Wound Culture - Preliminary Resulted Wound Thigh 09/12/16 03:30 Aerobic Blood Culture - Preliminary Resulted Blood Peripheral NO GROWTH IN 1 DAY 09/12/16 03:30 Anaerobic Blood Culture - Preliminary Resulted Blood Peripheral NO GROWTH IN 1 DAY 09/12/16 01:40 Urine Culture - Final Complete Urine Clean Catch 50-100,000 CFU/ML MIXED GRAM POSITIVE... Cardiovascular: Regular Lungs: Clear Abdomen: Other (healing with granulation tissue) Narrative Exam RLE Thigh- with packing, scant drainage A/P Assessment and Plan hx of nec fasc now with thigh abscess s/p I and D PLAN Reg diet pain control oob continue dressing changes will follow Ross Velásquez MD Sep 13, 2016 17:47
[2016-09-13] MEDS: PRAVASTATIN SOD 40 MG TAB PO SCH (19:58)
[2016-09-13] MEDS: REMOVE OLD NICODERM (NICOTINE) PATCH TD SCH (21:00)
[2016-09-14] MEDS: PIPERACIL-TAZO 4.5 GM PREMIX 100 ML IV SCH ×4 (02:13→20:57)
[2016-09-14] MEDS: oxyCODONE/ACETAMINOPHEN 10 MG/325 MG TAB PO PRN ×4 (04:52→20:56)
[2016-09-14] MEDS: LORazepam 1 MG TAB PO PRN ×3 (04:53→22:47)
[2016-09-14] MEDS: INSULIN ASPART SUPPLEMENTAL SCALE SQ SCH ×4 (05:00→20:56)
[2016-09-14] MEDS: SODIUM CHLORIDE 0.9% FLUSH 5 ML FLUSH FLUSH SCH ×2 (07:36→20:54)
[2016-09-14 07:45] VITALS: BP 161/73; PULSE 60; RESP 18; TEMP 98.3; O2SAT 99
[2016-09-14] MEDS: NICOTINE 21 MG/24 HR PATCH TD SCH (08:10)
[2016-09-14] MEDS: PANTOPRAZOLE SOD 40 MG DELAYED RELEASE TAB PO SCH (08:10)
[2016-09-14] MEDS: SODIUM CHLOR 0.9% 1000 ML INJ 1,000 ML IV SCH ×2 (08:10→20:57)
[2016-09-14] MEDS: ENOXAPARIN SODIUM 40 MG/0.4 ML SYRINGE SQ SCH (08:10)
[2016-09-14] MEDS: MULTIVITAMINS/MINERALS THERAPEUTIC TAB PO SCH ×2 (08:10→20:56)
[2016-09-14] MEDS: DICLOFENAC SODIUM 50 MG DELAYED RELEASE TAB PO SCH ×2 (08:10→20:56)
[2016-09-14] MEDS: HYDROmorphone HCL PF 1 MG/ML VIAL IV PUSH PRN ×3 (09:22→22:47)
[2016-09-14 11:52] VITALS: BP 154/66; PULSE 60; RESP 16; TEMP 97.7; O2SAT 98
--- NOTE | 2016-09-14 13:25 | HHI.PR ---
Subjective Remarks Sitting on the edge of the bed, stated she feels the infection is getting better Afebrile, no chest pain or short of breath Pulmonary wound culture showed group D enterococcus, we'll consult infectious disease for further antibiotic management Objective Vitals Vital Signs Date Time Temp Pulse Resp B/P Pulse Ox O2 Delivery O2 Flow Rate FiO2 09/14/16 11:52 97.7 60 16 154/66 98 09/14/16 07:45 98.3 60 18 161/73 99 09/14/16 05:55 16 09/14/16 01:04 16 09/13/16 23:22 69 120/72 97 09/13/16 19:58 77 20 147/80 100 09/13/16 15:57 98.8 70 16 142/63 99 I/O 09/13/16 09/13/16 09/13/16 09/14/16 09/14/16 09/14/16 07:00 15:00 23:00 07:00 15:00 23:00 Intake Total 300 ml Output Total 600 ml Balance 300 ml -600 ml Intake Oral 300 ml Output Urine Total 600 ml Result Diagram: 09/13/1642609/13/16426 Objective Remarks GENERAL: This is a well-nourished, well-developed patient, in no apparent distress. SKIN: Right thigh packed wound and dressing as well as right groin HEAD: Atraumatic. Normocephalic. EYES: Pupils equal round and reactive. Extraocular motions intact. No scleral icterus. ENT: Nose without bleeding, or drainage, Airway patent. NECK: Trachea midline. Supple CARDIOVASCULAR: Regular rate and rhythm without murmurs, gallops, or rubs. RESPIRATORY: Fair air entry bilaterally. No wheezes, rales, or rhonchi. GASTROINTESTINAL: Abdomen soft, non-tender, nondistended. Positive bowel sounds MUSCULOSKELETAL: Extremities without clubbing, cyanosis, or edema. Pedal pulses appreciated NEUROLOGICAL: Awake and alert. Moves all extremity. Normal speech.no focal neurological deficit A/P Problem List: (1) Sepsis ICD Code: A41.9 Status: Acute (2) Cellulitis of right thigh ICD Code: L03.115 Status: Acute (3) Abdominal pain ICD Code: R10.9 Status: Acute (4) Diabetes mellitus type 2 ICD Code: 250.00 Status: Chronic (5) Dyslipidemia ICD Code: 272.8 Status: Chronic (6) Benign essential hypertension ICD Code: 401.1 Status: Chronic (7) Tobacco abuse ICD Code: Z72.0 Status: Acute Assessment and Plan 09/13/16: Stable no fever or chills, monitor culture and CBC in a.m. 09/14/16: Afebrile, wound culture preliminary showed group B enterococcus, will continue vancomycin, will consult ID, surgery will follow when necessary, will consult PT OT and case consultant for DC planning A/P: 1. Abdominal pain: Uncertain etiology. Patient had multiple surgeries in May of last year for necrotizing fasciitis of the flanks, pannus. 2. Sepsis: Secondary to cellulitis. Patient meets criteria with tachycardia, leukocytosis. Continue vancomycin and Zosyn. Pharmacy to dose vancomycin. 3. Right upper thigh cellulitis, abscess: IV antibiotics. Appreciate general surgery consult status post incision and drainage and packing 4. Diabetes mellitus: Hold glipizide. Monitor Accu-Cheks and cover with sliding scale insulin. 5. Hypertension: Blood pressure has been intermittently elevated. Patient is not on antihypertensive medications. Clonidine available as needed. 6. Hyperlipidemia: Continue statin. 7. GERD: Continue PPI. 8. DVT prophylaxis: SCDs, CORI stone, Lovenox. 9. Acute kidney injury: Improving creatinine trending down, Monitor BUN and creatinine. IV fluids Owen Duff MD Sep 14, 2016 13:25
[2016-09-14 15:16] VITALS: BP 150/71; PULSE 63; RESP 18; TEMP 97.5; O2SAT 100
[2016-09-14] MEDS ORDERED: PHARMACY ORDERED LAB XX ONE (17:45)
[2016-09-14] MEDS: VANCOMYCIN INJ 2,000 MG in SODIUM CHLORID 0.9% 500 ML INJ 500 ML IV SCH (17:47)
[2016-09-14 19:13] VITALS: BP 166/78; PULSE 66; RESP 20; TEMP 98.2; O2SAT 100
[2016-09-14] MEDS: PRAVASTATIN SOD 40 MG TAB PO SCH (20:56)
[2016-09-14] MEDS: REMOVE OLD NICODERM (NICOTINE) PATCH TD SCH (20:57)
[2016-09-14] MEDS ORDERED: BISACODYL 10 MG SUPP PR PRN (22:45)
[2016-09-14] MEDS ORDERED: SENNOSIDES 8.6 MG TAB PO PRN (22:45)
[2016-09-14] MEDS: DOCUSATE SODIUM 100 MG CAP PO SCH (22:47)
[2016-09-14 23:09] VITALS: BP 166/79; PULSE 65; O2SAT 97
[2016-09-15] MEDS: oxyCODONE/ACETAMINOPHEN 10 MG/325 MG TAB PO PRN ×3 (01:51→21:19)
[2016-09-15] MEDS: PIPERACIL-TAZO 4.5 GM PREMIX 100 ML IV SCH ×3 (03:14→14:01)
[2016-09-15] MEDS: HYDROmorphone HCL PF 1 MG/ML VIAL IV PUSH PRN ×5 (03:14→22:25)
[2016-09-15 03:20] VITALS: BP 177/75; PULSE 50; TEMP 97.6; O2SAT 99
[2016-09-15] MEDS: INSULIN ASPART SUPPLEMENTAL SCALE SQ SCH ×4 (05:45→21:19)
[2016-09-15] MEDS: SODIUM CHLOR 0.9% 1000 ML INJ 1,000 ML IV SCH (06:14)
[2016-09-15] MEDS: LORazepam 1 MG TAB PO PRN ×2 (07:40→16:25)
[2016-09-15] MEDS: MULTIVITAMINS/MINERALS THERAPEUTIC TAB PO SCH ×2 (07:40→21:19)
[2016-09-15] MEDS: SODIUM CHLORIDE 0.9% FLUSH 5 ML FLUSH FLUSH SCH ×2 (07:40→21:20)
[2016-09-15] MEDS: DOCUSATE SODIUM 100 MG CAP PO SCH ×2 (07:40→21:19)
[2016-09-15] MEDS: ENOXAPARIN SODIUM 40 MG/0.4 ML SYRINGE SQ SCH (07:41)
[2016-09-15] MEDS: PANTOPRAZOLE SOD 40 MG DELAYED RELEASE TAB PO SCH (07:41)
[2016-09-15] MEDS: DICLOFENAC SODIUM 50 MG DELAYED RELEASE TAB PO SCH ×2 (07:41→18:17)
[2016-09-15] MEDS: REMOVE OLD NICODERM (NICOTINE) PATCH TD SCH (07:42)
[2016-09-15] MEDS: NICOTINE 21 MG/24 HR PATCH TD SCH (07:42)
[2016-09-15 08:00] VITALS: BP 147/67; PULSE 53; RESP 20; TEMP 97.5; O2SAT 97
[2016-09-15 12:00] VITALS: BP 152/72; PULSE 57; RESP 20; TEMP 96.5; O2SAT 97
[2016-09-15] MEDS ORDERED: VANCOMYCIN INJ 1,800 MG in SODIUM CHLORID 0.9% 500 ML INJ 500 ML IV SCH (12:00)
[2016-09-15] MEDS: oxyCODONE/ACETAMINOPHEN 5 MG/325 MG TAB PO PRN ×2 (12:14→16:25)
--- NOTE | 2016-09-15 12:49 | HHI.PR ---
Subjective Remarks no f/c , pt requesting inc dilaudid awaiting ID consult Objective Vitals Vital Signs Date Time Temp Pulse Resp B/P Pulse Ox O2 Delivery O2 Flow Rate FiO2 09/15/16 12:00 96.5 57 20 152/72 97 09/15/16 08:00 97.5 53 20 147/67 97 09/15/16 03:20 97.6 50 177/75 99 09/14/16 23:09 65 166/79 97 09/14/16 19:13 98.2 66 20 166/78 100 09/14/16 18:18 14 09/14/16 16:22 14 09/14/16 15:16 97.5 63 18 150/71 100 I/O 09/14/16 09/14/16 09/14/16 09/15/16 09/15/16 09/15/16 07:00 15:00 23:00 07:00 15:00 23:00 Intake Total 1200 ml Output Total 600 ml Balance -600 ml 1200 ml IV Total 1200 ml Output Urine Total 600 ml # Voids 4 Result Diagram: 09/13/16 0427 09/15/16 0645 Objective Remarks GENERAL: This is a well-nourished, well-developed patient, in no apparent distress. SKIN: Right thigh packed wound and dressing as well as right groin HEAD: Atraumatic. Normocephalic. EYES: Pupils equal round and reactive. Extraocular motions intact. No scleral icterus. ENT: Nose without bleeding, or drainage, Airway patent. NECK: Trachea midline. Supple CARDIOVASCULAR: Regular rate and rhythm without murmurs, gallops, or rubs. RESPIRATORY: Fair air entry bilaterally. No wheezes, rales, or rhonchi. GASTROINTESTINAL: Abdomen soft, non-tender, nondistended. Positive bowel sounds MUSCULOSKELETAL: Extremities without clubbing, cyanosis, or edema. Pedal pulses appreciated NEUROLOGICAL: Awake and alert. Moves all extremity. Normal speech.no focal neurological deficit A/P Problem List: (1) Sepsis ICD Code: A41.9 Status: Acute (2) Cellulitis of right thigh ICD Code: L03.115 Status: Acute (3) Abdominal pain ICD Code: R10.9 Status: Acute (4) Diabetes mellitus type 2 ICD Code: 250.00 Status: Chronic (5) Dyslipidemia ICD Code: 272.8 Status: Chronic (6) Benign essential hypertension ICD Code: 401.1 Status: Chronic (7) Tobacco abuse ICD Code: Z72.0 Status: Acute Assessment and Plan 09/13/16: Stable no fever or chills, monitor culture and CBC in a.m. 09/14/16: Afebrile, wound culture preliminary showed group B enterococcus, will continue vancomycin, will consult ID, surgery will follow when necessary, will consult PT OT and keycase assembler for DC planning 09/15/16: she wants more dilaudid , not helping her pain , awaiting ID consult A/P: 1. Abdominal pain: Uncertain etiology. Patient had multiple surgeries in May of last year for necrotizing fasciitis of the flanks, pannus. 2. Sepsis: Secondary to cellulitis. Patient meets criteria with tachycardia, leukocytosis. Continue vancomycin and Zosyn. Pharmacy to dose vancomycin. 3. Right upper thigh cellulitis, abscess: IV antibiotics. Appreciate general surgery consult status post incision and drainage and packing 4. Diabetes mellitus: Hold glipizide. Monitor Accu-Cheks and cover with sliding scale insulin. 5. Hypertension: Blood pressure has been intermittently elevated. Patient is not on antihypertensive medications. Clonidine available as needed. 6. Hyperlipidemia: Continue statin. 7. GERD: Continue PPI. 8. DVT prophylaxis: SCDs, CORI ritter, Lovenox. 9. Acute kidney injury: Improving creatinine trending down, Monitor BUN and creatinine. IV fluids Owen Duff MD Sep 15, 2016 12:49
[2016-09-15 16:00] VITALS: BP 165/73; PULSE 59; RESP 20; TEMP 97.1; O2SAT 100
--- NOTE | 2016-09-15 16:31 | PD.ID.CON ---
History of Present Illness Service ID Consult Requested By Reason for Consult Evaluation and Mment of E.faecalis ulcer infected, cellulitis of perineum. Primary Care Physician Alex Castrejon DO Diagnoses: History of Present Illness is a 55 y/o CF with history of diabetes and hypertension. She was hospitalized last May for treatment of right abdominal wall necrotizing fasciitis and needed multiple surgeries and has a right lower abdominal wound/ defect in skin. She states that over the past week she has developed worsening abdominal pain which she describes as sharp and stabbing. The pain is in the mid upper abdomen and does not radiate. She denies nausea or vomiting. She has had some constipation, but that resolved with milk of magnesia. She developed a new wound on the right upper thigh about a week ago. It is erythematous and has an ulcerative center. She also has an abscess forming on the inner upper right thigh. She reports fever, chills, and night sweats. She denies any bleeding per rectum or any upper GI symptoms. Reports recurrent groin as well as bilateral LE cellulitis as well as chronic swelling. ID consulted for evaluation of infected wound right perineum and cellulitis. Review of Systems ROS Limitations: Poor Historian Constitutional: DENIES: Diaphoretic episodes, Fatigue, Fever, Weight gain, Weight loss, Chills, Dizziness, Change in appetite, Night Sweats Endocrine: DENIES: Abnorml menstrual pattern, Heat/cold intolerance, Polydipsia , Polyuria, Polyphagia Eyes: DENIES: Blurred vision, Diplopia, Eye inflammation, Eye pain, Vision loss , Photosensitivity, Double Vision Ears, nose, mouth, throat: DENIES: Tinnitus, Hearing loss, Vertigo, Nasal discharge, Oral lesions, Throat pain, Hoarseness, Ear Pain, Running Nose, Epistaxis, Sinus Pain, Toothache, Odynophagia Respiratory: DENIES: Apneas, Cough, Snoring, Wheezing, Hemoptysis, Sputum production, Shortness of breath Cardiovascular: DENIES: Chest pain, Palpitations, Syncope, Dyspnea on Exertion , PND, Lower Extremity Edema, Orthopnea, Claudication Gastrointestinal: COMPLAINS OF: Abdominal pain, DENIES: Black stools, Bloody stools, Constipation, Diarrhea, Nausea, Vomiting, Difficulty Swallowing, Anorexia Genitourinary: DENIES: Abnormal vaginal bleeding, Dysmenorrhea, Dyspareunia, Sexual dysfunction, Urinary frequency, Urinary incontinence, Urgency, Hematuria , Dysuria, Nocturia, Vaginal discharge Musculoskeletal: DENIES: Joint pain, Muscle aches, Stiffness, Joint Swelling, Back pain, Neck pain Integumentary: DENIES: Abnormal pigmentation, Pruritus, Rash, Nail changes, Breast masses, Breast skin changes, Nipple discharge Hematologic/lymphatic: DENIES: Bruising, Lymphadenopathy Immunologic/allergic: DENIES: Eczema, Urticaria Neurologic: DENIES: Abnormal gait, Headache, Localized weakness, Paresthesias, Seizures, Speech Problems, Tremor, Poor Balance Psychiatric: DENIES: Anxiety, Confusion, Mood changes, Depression, Hallucinations, Agitation, Suicidal Ideation, Homicidal Ideation, Delusions Except as stated in HPI: all other systems reviewed are Neg Past Family Social History Allergies: Coded Allergies: Tinactin (Unverified Allergy, Severe, 09/12/16) TONGUE LIPS THROAT SWELLING Past Medical History Diabetes mellitus type 2 Osteoarthritis History of necrotizing fasciitis Hypertension Hyperlipidemia GERD History of kidney stones Past Surgical History Lithotripsy 2012 Cholecystectomy 1991 Ureteroscopy with stent placement 2012 Tooth extraction Incision and drainage with wide debridement of the flanks, pannus, labia with wound VAC placement 2016 Reported Medications Reported Meds & Active Scripts Active Isotonic Gentamicin 1.2-0.9 mg/ml-% (Gentamicin in Saline) 1 Inj Inj 2 Injection TOPICAL DAILY To flush the abdominal wound with the antibiotic as part of the dressing change. Thera M Plus (Multivitamins/Minerals Therapeutic) 1 Tab 1 Tab PO Q12HR Glucotrol (Glipizide) 5 Mg Tab 5 Mg PO BID@08,16 Omeprazole 40 Mg Cap 40 Mg PO DAILY Lovastatin 40 Mg Tab 40 Mg PO HS Ativan (Lorazepam) 1 Mg Tab 1 Mg PO Q8HR PRN Wheelchair (Device) 1 Mis Mis 1 Ea .ROUTE DIRECTED [syringes 0.5 ml 31 g] ga Bd ultra fine pen needle 0.8mmx 31g, lancets, and test strips Reported Morphine ER (Morphine Sulfate) 15 Mg Tab 15 Mg PO BID Morphine ER (Morphine Sulfate) 15 Mg Tab 15 Mg PO TID Diclofenac Potassium 50 Mg Tab 100 Mg PO BID Active Ordered Medications Current Medications Medications (Trade) Dose Ordered Sig/Sherly Route Start Time Stop Time Status Last Admin (NS Flush) 2 ml UNSCH PRN FLUSH 09/12/16 05:15 (NS Flush) 2 ml BID FLUSH 09/12/16 09:00 09/15/16 07:40 (Zofran Inj) 4 mg Q6H PRN IVP 09/12/16 05:15 09/13/16 02:36 (Lovenox Inj) 40 mg Q24H SQ 09/12/16 09:00 09/15/16 07:41 (Narcan Inj) 0.4 mg UNSCH PRN IV 09/12/16 05:15 (D50w (Vial) Inj) 25 ml UNSCH PRN IV PUSH 09/12/16 05:15 (Glucagon Inj) 1 mg UNSCH PRN OTHER 09/12/16 05:15 Clonidine 0.1 mg 0.1 mg Q6H PRN PO 09/12/16 08:15 (NS 1000 ml Inj) 1,000 ml @ 84 mls/hr [id number] IV 09/12/16 08:15 09/15/16 06:14 (Ativan) 1 mg Q8HR PRN PO 09/12/16 08:15 09/15/16 16:25 (Pravachol) 40 mg HS PO 09/12/16 21:00 09/14/16 20:56 (Theragran M Tab) 1 tab Q12HR PO 09/12/16 09:00 09/15/16 07:40 (Protonix) 40 mg DAILY PO 09/12/16 09:00 09/15/16 07:41 (Voltaren Dr) 100 mg BID PO 09/12/16 09:30 09/15/16 07:41 (Dilaudid Pf Inj) 0.5 mg Q4H PRN IV PUSH 09/12/16 16:00 09/15/16 14:01 (Percocet 5-325 Mg) 1 tab Q4H PRN PO 09/12/16 14:00 09/15/16 16:25 (Percocet 10-325 Mg) 1 tab Q4H PRN PO 09/12/16 14:00 09/15/16 06:13 (Habitrol 21 Mg Patch.24 Hr) 1 patch DAILY TD 09/13/16 16:00 09/15/16 07:42 Miscellaneous Information 1 HS TD 09/13/16 21:00 09/15/16 07:42 Miscellaneous Information SPECIFIC LAB TO BE DRAWN:[facility] DATE TO BE [facility]. ONCE ONCE XX 09/16/16 05:45 09/16/16 05:46 (Colace) 100 mg BID PO 09/14/16 22:45 09/15/16 07:40 (Dulcolax Supp) 10 mg DAILY PRN [place] 09/14/16 22:45 (Senokot) 8.6 mg BID PRN PO 09/14/16 22:45 Family History Diabetes Hypertension Glaucoma Social History Smokes one half pack per day. Denies alcohol or illicit drug use. Works with an [employer] from home using her laptop. Physical Exam Vital Signs Vital Signs Date Time Temp Pulse Resp B/P Pulse Ox O2 Delivery O2 Flow Rate FiO2 09/15/16 16:00 97.1 59 20 165/73 100 09/15/16 12:00 96.5 57 20 152/72 97 09/15/16 08:00 97.5 53 20 147/67 97 09/15/16 03:20 97.6 50 177/75 99 09/14/16 23:09 65 166/79 97 09/14/16 19:13 98.2 66 20 166/78 100 09/14/16 18:18 14 Physical Exam GENERAL: Obese CF, poor hygiene patient, in no apparent distress. SKIN: No rashes, ecchymoses or lesions. Cool and dry. HEAD: Atraumatic. Normocephalic. No temporal or scalp tenderness. EYES: Pupils equal round and reactive. Extraocular motions intact. No scleral icterus. No injection or drainage. ENT: Nose without bleeding, purulent drainage or septal hematoma. Throat without erythema, tonsillar hypertrophy or exudate. Uvula midline. Airway patent. NECK: Trachea midline. Supple, nontender, no meningeal signs. CARDIOVASCULAR: Regular rate and rhythm without murmurs, gallops, or rubs. RESPIRATORY: Clear to auscultation. Breath sounds equal bilaterally. GASTROINTESTINAL: Abdomen soft, non-tender, nondistended. MUSCULOSKELETAL: Non pitting pedal edema noted. No joint tenderness, effusion, or edema noted. No calf tenderness. Negative Homans sign bilaterally. Right thigh, suprapubic area: surgical wound with clean base with no e.o infection. Perineum with mild erythema. Right thigh with small opening, no active discharge, superficial. Patient reports this used to be deep and now has healed. Right thigh patient also has a small coin shaped ulcer with eschar with no e.o active infection. NEUROLOGICAL: Awake and alert. No focal deficits. Psych: cooperative IV line sites with no e.o infection. Laboratory Laboratory Tests Test 09/14/16 09/15/16 17:20 06:45 Vancomycin Level Trough 19.9 Creatinine 1.37 Estimat Glomerular Filtration 40 Rate Date/Time Procedure Status Source Growth 09/12/16 14:29 Gram Stain - Final Complete Wound Thigh 09/12/16 14:29 Wound Culture - Final Complete Enterococcus Faecalis 09/12/16 03:30 Aerobic Blood Culture - Preliminary Resulted Blood Peripheral NO GROWTH IN 3 DAYS 09/12/16 03:30 Anaerobic Blood Culture - Preliminary Resulted Blood Peripheral NO GROWTH IN 3 DAYS 09/12/16 01:40 Urine Culture - Final Complete Urine Clean Catch 50-100,000 CFU/ML MIXED GRAM POSITIVE... Result Diagram: 09/13/16 0427 09/15/16 0645 Imaging Last Impressions Abdomen/Pelvis CT 09/12/16 0250 Signed Impressions: Service Date/Time: Monday, September 12, 2016 04:21 - CONCLUSION: 1. Interval resolution of bilateral pleural effusions with concomitant atelectatic changes. Lung bases are now clear 2. Stable 4 cm mass lesion in the left adrenal gland. 3. Asymmetry of the kidneys with the left larger than the right. This may represent some vascular compromise to the right kidney. There is stable cortical scarring in both kidneys. 4. Findings a previous resection of the subcutaneous tissues in the right lower abdominal quadrant. This likely represents the area of patient's reported prior necrotizing fasciitis. No active disease. Nothing acute to explain current clinical symptoms. Akira Mann MD Assessment and Plan Assessment and Plan Perineal cellulitis Right thigh groin wound with no e/o infection. Multiple perineal and lower abdominal debridements and surgeries for necrotizing fasciitis. Obesity Poor hygiene Recs DC Zosyn IV DC Vanco IV Start oral ampicillin x 10 days Start oral flagyl x 10 days. Start oral diflucan x 5 days. Santyl for local application to right thigh wound with eschar. Will sign off please call back if any change in clinical condition or questions. Maria Dolores Caban MD Sep 15, 2016 16:31
[2016-09-15] MEDS ORDERED: AMPI500C8 PO (16:33)
[2016-09-15] MEDS ORDERED: METR-1 PO (16:33)
[2016-09-15] MEDS ORDERED: DIFL100T PO (16:35)
[2016-09-15] MEDS: FLUCONAZOLE 100 MG TAB PO SCH (17:00)
[2016-09-15] MEDS ORDERED: COLLAGENASE OINT 30 GM TUBE TOP SCH (17:00)
[2016-09-15] MEDS: metroNIDAZOLE 500 MG TAB PO SCH ×2 (18:16→21:18)
[2016-09-15] MEDS: AMOXICILLIN (TRIHYDRATE) 500 MG CAP PO SCH ×2 (18:16→22:24)
[2016-09-15 20:08] VITALS: BP 174/88; PULSE 67; RESP 20; TEMP 95.9; O2SAT 100
[2016-09-15] MEDS: PRAVASTATIN SOD 40 MG TAB PO SCH (21:19)
[2016-09-16 00:11] VITALS: BP 151/78; PULSE 60; RESP 20; TEMP 98; O2SAT 98
[2016-09-16] MEDS: LORazepam 1 MG TAB PO PRN ×2 (01:47→09:50)
[2016-09-16] MEDS: oxyCODONE/ACETAMINOPHEN 10 MG/325 MG TAB PO PRN (01:47)
[2016-09-16 04:41] VITALS: BP 173/77; PULSE 60; RESP 20; TEMP 98; O2SAT 95
[2016-09-16] MEDS: metroNIDAZOLE 500 MG TAB PO SCH (04:51)
[2016-09-16] MEDS: AMOXICILLIN (TRIHYDRATE) 500 MG CAP PO SCH (04:51)
[2016-09-16] MEDS: HYDROmorphone HCL PF 1 MG/ML VIAL IV PUSH PRN ×2 (04:51→08:15)
[2016-09-16] MEDS ORDERED: PHARMACY ORDERED LAB XX ONE (05:45)
[2016-09-16] MEDS: INSULIN ASPART SUPPLEMENTAL SCALE SQ SCH (06:20)
[2016-09-16 08:00] VITALS: BP 177/75; PULSE 60; RESP 22; TEMP 96; O2SAT 98
[2016-09-16] MEDS ORDERED: OXYC1TAB63 PO (08:05)
[2016-09-16] MEDS ORDERED: LEVEMIR SQ (08:09)
[2016-09-16] MEDS ORDERED: NOVOLOGSS SQ (08:09)
[2016-09-16] MEDS: DOCUSATE SODIUM 100 MG CAP PO SCH (08:13)
[2016-09-16] MEDS: DICLOFENAC SODIUM 50 MG DELAYED RELEASE TAB PO SCH (08:14)
[2016-09-16] MEDS: FLUCONAZOLE 100 MG TAB PO SCH (08:14)
[2016-09-16] MEDS: NICOTINE 21 MG/24 HR PATCH TD SCH (08:14)
[2016-09-16] MEDS: REMOVE OLD NICODERM (NICOTINE) PATCH TD SCH (08:14)
[2016-09-16] MEDS: MULTIVITAMINS/MINERALS THERAPEUTIC TAB PO SCH (08:14)
[2016-09-16] MEDS: ENOXAPARIN SODIUM 40 MG/0.4 ML SYRINGE SQ SCH (08:14)
[2016-09-16] MEDS: PANTOPRAZOLE SOD 40 MG DELAYED RELEASE TAB PO SCH (08:14)
[2016-09-16] MEDS: SODIUM CHLORIDE 0.9% FLUSH 5 ML FLUSH FLUSH SCH (08:15)
--- NOTE | 2016-09-16 09:17 | HHI.DS ---
Discharge Summary Admission Date Sep 12, 2016 at 09:03 Discharge Date: Sep 16, 2016 Admitting Diagnosis right thigh cellulitis/sepsis (1) Sepsis ICD Code: A41.9 (2) Cellulitis of right thigh ICD Code: L03.115 (3) Abdominal pain ICD Code: R10.9 (4) Diabetes mellitus type 2 ICD Code: 250.00 (5) Dyslipidemia ICD Code: 272.8 (6) Benign essential hypertension ICD Code: 401.1 (7) Tobacco abuse ICD Code: Z72.0 Procedures I&D Brief History - From Admission The patient is a 55-year-old female with history of diabetes and hypertension. She was hospitalized last May for treatment of right abdominal wall necrotizing fasciitis. She had multiple surgeries and that wound has now healed. She states that over the past week she has developed worsening abdominal pain which she describes as sharp and stabbing. The pain is in the mid upper abdomen and does not radiate. She denies nausea or vomiting. She has had some constipation, but that resolved with milk of magnesia. She developed a new wound on the right upper thigh about a week ago. It is erythematous and has an ulcerative center. She also has an abscess forming on the inner upper right thigh. She reports fever, chills, and night sweats. CBC/BMP: 09/13/16 0427 09/15/16 0645 Significant Findings Laboratory Tests Test 09/14/16 09/15/16 17:20 06:45 Vancomycin Level Trough 19.9 MCG/ML (5.0-10.0) Creatinine 1.37 MG/DL (0.50-1.00) Estimat Glomerular Filtration 40 ML/MIN (>89) Rate PE at Discharge GENERAL: This is a well-nourished, well-developed patient, in no apparent distress. SKIN: Right thigh packed wound and dressing as well as right groin HEAD: Atraumatic. Normocephalic. EYES: Pupils equal round and reactive. Extraocular motions intact. No scleral icterus. ENT: Nose without bleeding, or drainage, Airway patent. NECK: Trachea midline. Supple CARDIOVASCULAR: Regular rate and rhythm without murmurs, gallops, or rubs. RESPIRATORY: Fair air entry bilaterally. No wheezes, rales, or rhonchi. GASTROINTESTINAL: Abdomen soft, non-tender, nondistended. Positive bowel sounds MUSCULOSKELETAL: Extremities without clubbing, cyanosis, or edema. Pedal pulses appreciated NEUROLOGICAL: Awake and alert. Moves all extremity. Normal speech.no focal neurological deficit Hospital Course 55 y/o admitted with Abdominal pain Patient had multiple surgeries in May of last year for necrotizing fasciitis of the flanks, pannus. found to be in Sepsis: Secondary to cellulitis. Patient meets criteria with tachycardia, leukocytosis. placed on vancomycin and Zosyn. Pharmacy to dose vancomycin. Right upper thigh cellulitis, abscess IV antibiotics. general surgery consulted status post incision and drainage and packing, ID consulted Diflucan ampicillin, Flagyl Diabetes mellitus: Hold glipizide. Monitor Accu-Cheks and cover with sliding scale insulin. Hypertension: Blood pressure has been intermittently elevated. Patient is not on antihypertensive medications. Clonidine available as needed. Hyperlipidemia: Continue statin. GERD: Continue PPI. DVT prophylaxis: SCDs, CORI ritter, Lovenox. Acute kidney injury: Improving creatinine trending down, Monitor BUN and creatinine. IV fluids 09/14/16: Afebrile, wound culture preliminary showed group B enterococcus, will continue vancomycin, will consult ID, surgery will follow when necessary, will consult PT OT and leather case finisher for DC planning 09/15/16: she wants more dilaudid , not helping her pain , awaiting ID consult 09/16/16: ID consult appreciate , rec Diflucan ,ampicillin, Flagyl, pt requesting pain meds and ativan at dc Pt Condition on Discharge: Fair Discharge Disposition: Discharge Home Discharge Time: > 30 minutes Discharge Instructions DIET: Follow Instructions for: Heart Healthy Diet, Diabetic Diet Activities you can perform: Weight Bearing as Jose New Medications: Ampicillin (Ampicillin) 500 Mg Cap 500 MG PO QID Infection Days 10 Ref 0 CAP Fluconazole (Diflucan) 100 Mg Tab 100 MG PO DAILY Infection Days 5 Ref 0 TAB Insulin Detemir Inj (Levemir Inj) 1,000 unit/ 10 ML Vial 3 UNITS SQ HS Do not mix with any other Insulin. Blood Sugar Management Days 30 Ref 0 VIAL Metronidazole (Flagyl) 500 Mg Tab 500 MG PO QID Infection Days 10 Ref 0 TAB Insulin Aspart Inj (Novolog Inj) 100 Unit/Ml Inj 1 UNITS SQ ACHS SLIDING SCALE dm Days 30 INJECTION Oxycodone-Acetaminophen (Oxycodone-Acetaminophen) 5-325 mg Tab 1 TAB PO Q4H PRN PAIN SCALE 3 TO 6 #20 TAB Continued Medications: Glipizide (Glucotrol) 5 Mg Tab 5 MG PO BID@08,16 #60 TAB Lovastatin (Lovastatin) 40 Mg Tab 40 MG PO HS Cholesterol Management #30 Ref 0 TAB Omeprazole (Omeprazole) 40 Mg Cap 40 MG PO DAILY #30 Ref 0 CAP Owen Duff MD Sep 16, 2016 09:17
[2016-09-16] MEDS: oxyCODONE/ACETAMINOPHEN 5 MG/325 MG TAB PO PRN (09:50)
== END 2016-09-16 10:12 | disposition home or self-care (01) | DRG 854 ==
LOC: NEPC 23:40 → NEDA 09-12 05:07 → NEPFCDU 09-12 08:01 → OBSVTOIN 09-12 09:03
PROVIDERS: ADMIT Hospitalist; ATTEND Hospitalist
PROC: 0J9L0ZZ Drainage of Right Upper Leg Subcutaneous Tissue and Fascia, Open Approach (ICD-10-PCS; principal; 2016-09-12)
DX: A41.9 Sepsis, unspecified organism (principal); N17.9 Acute kidney failure, unspecified; L02.415 Cutaneous abscess of right lower limb; I10 Essential (primary) hypertension; E11.9 Type 2 diabetes mellitus without complications; L03.314 Cellulitis of groin; N39.0 Urinary tract infection, site not specified; L03.115 Cellulitis of right lower limb; L03.116 Cellulitis of left lower limb; E66.9 Obesity, unspecified; E78.5 Hyperlipidemia, unspecified; K21.9 Gastro-esophageal reflux disease without esophagitis; M17.0 Bilateral primary osteoarthritis of knee; Z87.442 Personal history of urinary calculi; F17.210 Nicotine dependence, cigarettes, uncomplicated
CPT/HCPCS: 74177; 80048; 80053; 80202; 81001; 82565; 82948; 83605; 85025; 87040; 87070; 87077; 87086; 87186; 87205; 96365; 96368; 96375; J1170; J1650; J1815; J2270; J2405; J2543; J3370; J7030; J7040; J7050; Q9967

== ENCOUNTER 2016-09-26 12:40 | Emergency (ER) | payer OTHER ==
[~2016-09-26] VITALS: Ht 167.6 cm; Wt 100.0 kg
[~2016-09-26 12:40] MED LIST changes: +AMPI500C8 PO; -ASPI81TA11 PO; +DICL50TA PO; +DIFL100T PO; -DILA2TAB2 PO; -DOLO10TA PO; +LEVEMIR SQ; +METR-1 PO; +MORP1TAB24 PO; +NOVOLOGSS SQ; -OXYC1TAB36 PO; +OXYC1TAB63 PO
[2016-09-26 12:51] VITALS: BP 139/83; PULSE 75; RESP 18; TEMP 98.2; O2SAT 99
--- NOTE | 2016-09-26 13:33 | PD ---
HPI Chief Complaint: GI Complaint Time Seen by Provider: 12:54 Travel History International Travel<30 days: No Contact w/Intl Traveler<30days: No Traveled to known affect area: No History of Present Illness HPI The patient was seen and examined in the presence of the nurse. This patient complains of abdominal pain. Location is central abdominal pain. She says she' s had pain for 2 straight weeks. However, 2 weeks ago she was in the hospital being evaluated. She had a negative CT of abdomen and pelvis at that time. She does have history of necrotizing fasciitis and has had multiple abdominal surgeries. Denies fever today. She has recently taken 7 a days of antibiotics. No alleviating factors. Severity is moderate. She has no gallbladder. She reports her abdominal wall incision is healing well. PFSH Past Medical History Arthritis: Yes (osteoarthritis of both knees & RT HIP) Asthma: No Autoimmune Disease: No Blood Disorders: No Anxiety: Yes Depression: No Heart Rhythm Problems: No Cancer: No Cardiovascular Problems: Yes High Cholesterol: Yes Chest Pain: No Congestive Heart Failure: No COPD: No Diabetes: Yes Patient Takes Glucophage: No Diminished Hearing: No Endocrine: Yes Genitourinary: Yes (kidney stones) Hepatitis: No Herniated Disk: Yes (L3) Hypertension: Yes (NOT TAKING MEDS) Immune Disorder: No Kidney Stones: Yes Medical other: Yes (ELEVATED CHOLESTEROL) Musculoskeletal: Yes (Right hip) Neurologic: No Psychiatric: No Reproductive: No Respiratory: No Sleep Apnea: No Thyroid Disease: No ?: Not Menopausal: Yes Past Surgical History Abdominal Surgery: Yes (GALLBLADDER REMOVAL 1991) AICD: No Body Medical Devices: right kidney stent Cardiac Surgery: No Cholecystectomy: Yes Ear Surgery: No Endocrine Surgery: No Eye Surgery: No Genitourinary Surgery: Yes (LITHOTRIPSY,URETEROSCOPY 12/2012, SWL 03/2013) Gynecologic Surgery: No Joint Replacement: No Oral Surgery: Yes (Teeth extracted) Pacemaker: No Thoracic Surgery: No Other Surgery: Yes (LITHOTRIPSY DONE 12/13/12, RIGHT ABDOMEN I&D) Social History Alcohol Use: No Tobacco Use: Yes (1/2-1PPD) Substance Use: No Allergies-Medications (Allergen,Severity, Reaction): Coded Allergies: Tinactin (Unverified Allergy, Severe, 09/26/16) TONGUE LIPS THROAT SWELLING Reported Meds & Prescriptions Reported Meds & Active Scripts Active Percocet (Oxycodone-Acetaminophen) 5-325 mg Tab 1 Tab PO Q6H PRN Potassium Bicarbonate Effervescent (Potassium Bicarbonate) 25 Meq Tab 50 Meq PO ONCE Isotonic Gentamicin 1.2-0.9 mg/ml-% (Gentamicin in Saline) 1 Inj Inj 2 Injection TOPICAL DAILY To flush the abdominal wound with the antibiotic as part of the dressing change. Glucotrol (Glipizide) 5 Mg Tab 5 Mg PO BID@08,16 Lovastatin 40 Mg Tab 40 Mg PO HS Ativan (Lorazepam) 1 Mg Tab 1 Mg PO Q8HR PRN Reported Tramadol (Tramadol HCl) 50 Mg Tab 100 Mg PO Q6H PRN Diclofenac Potassium 50 Mg Tab 100 Mg PO BID Review of Systems General / Constitutional: No: Fever Eyes: No: Visual changes HENT: No: Headaches Cardiovascular: No: Chest Pain or Discomfort Respiratory: No: Shortness of Breath Gastrointestinal: Positive: Nausea, Vomiting, Abdominal Pain Genitourinary: No: Dysuria Musculoskeletal: No: Pain Skin: No Rash Neurologic: No: Weakness Psychiatric: No: Depression Endocrine: No: Polydipsia Hematologic/Lymphatic: No: Easy Bruising Physical Exam Narrative GENERAL: Well-nourished, well-developed patient with abdominal pain. SKIN: Warm and dry. HEAD: Atraumatic. Normocephalic. EYES: Pupils equal and round. No scleral icterus. No injection or drainage. ENT: No nasal bleeding or discharge. Mucous membranes pink and moist. NECK: Trachea midline. No JVD. CARDIOVASCULAR: Regular rate and rhythm. No murmur appreciated. RESPIRATORY: No accessory muscle use. Clear to auscultation. Breath sounds equal bilaterally. GASTROINTESTINAL: Abdomen soft, tender in the periumbilical region. There is a healing wound in the right lower quadrant without dehiscence or active drainage. hepatic and splenic margins not palpable. MUSCULOSKELETAL: No obvious deformities. No clubbing. No cyanosis. No edema. NEUROLOGICAL: Awake and alert. No obvious cranial nerve deficits. Motor grossly within normal limits. Normal speech. PSYCHIATRIC: Appropriate mood and affect; insight and judgment normal. Data Data Last Documented VS Vital Signs Date Time Temp Pulse Resp B/P Pulse Ox O2 Delivery O2 Flow Rate FiO2 09/26/16 17:28 18 09/26/16 17:27 65 153/78 96 Room Air 09/26/16 12:51 98.2 Orders Complete Blood Count With Diff (09/26/16 13:11) Iv Access Insert/Monitor (09/26/16 13:11) Lipase (09/26/16 13:11) Comprehensive Metabolic Panel (09/26/16 13:11) Sodium Chlor 0.9% 1000 Ml Inj (Ns 1000 M (09/26/16 15:00) Ondansetron Inj (Zofran Inj) (09/26/16 15:00) Ct Abd/Pel W Iv Contrast(Rout) (09/26/16 ) Iohexol 350 Inj (Omnipaque 350 Inj) (09/26/16 15:49) Morphine Inj (Morphine Inj) (09/26/16 16:30) Potassium Chloride (Kcl) (09/26/16 18:30) Labs Laboratory Tests Test 09/26/16 13:25 White Blood Count 19.3 TH/MM3 Red Blood Count 5.73 MIL/MM3 Hemoglobin 13.2 GM/DL Hematocrit 40.3 % Mean Corpuscular Volume 70.4 FL Mean Corpuscular Hemoglobin 23.0 PG Mean Corpuscular Hemoglobin 32.6 % Concent Red Cell Distribution Width 19.5 % Platelet Count 422 TH/MM3 Mean Platelet Volume 8.9 FL Neutrophils (%) (Auto) 80.4 % Lymphocytes (%) (Auto) 11.9 % Monocytes (%) (Auto) 7.4 % Eosinophils (%) (Auto) 0.1 % Basophils (%) (Auto) 0.2 % Neutrophils # (Auto) 15.5 TH/MM3 Lymphocytes # (Auto) 2.3 TH/MM3 Monocytes # (Auto) 1.4 TH/MM3 Eosinophils # (Auto) 0.0 TH/MM3 Basophils # (Auto) 0.0 TH/MM3 CBC Comment AUTO DIFF Differential Total Cells 100 Counted Neutrophils % (Manual) 77 % Band Neutrophils % 2 % Lymphocytes % 14 % Monocytes % 7 % Neutrophils # (Manual) 15.2 TH/MM3 Differential Comment FINAL DIFF MANUAL Platelet Estimate NORMAL Platelet Morphology Comment NORMAL Sodium Level 131 MEQ/L Potassium Level 2.8 MEQ/L Chloride Level 94 MEQ/L Carbon Dioxide Level 25.1 MEQ/L Anion Gap 12 MEQ/L Blood Urea Nitrogen 17 MG/DL Creatinine 0.90 MG/DL Estimat Glomerular Filtration 65 ML/MIN Rate Random Glucose 129 MG/DL Calcium Level 9.3 MG/DL Total Bilirubin 0.6 MG/DL Aspartate Amino Transf 28 U/L (AST/SGOT) Alanine Aminotransferase 48 U/L (ALT/SGPT) Alkaline Phosphatase 93 U/L Total Protein 8.2 GM/DL Albumin 3.6 GM/DL Lipase 114 U/L MDM Medical Decision Making Medical Screen Exam Complete: Yes Emergency Medical Condition: Yes Medical Record Reviewed: Yes Differential Diagnosis Recurrent infection, abscess, ileus, obstruction, colitis Narrative Course I have reviewed the patient's electronic medical record. I reviewed her recent admission history and physical. Her most recent CT scan did not show abscess IV placed CBC shows leukocytosis of 19,000 Metabolic profile shows mild hyponatremia and hypokalemia of 2.8. I gave her a liter of normal saline IV and replacement of potassium here and on a prescription. Lipase is normal LFTs are normal CT of abdomen and pelvis with IV contrast reveals no evidence of significant or emergent problem. There are some incidental findings. It was compared to the recent CT and nothing new or acute is noted. There is no abdominal obstruction or abscess noted. No sign of infection I did a complete skin exam including back and legs and abdomen and I don't see any sign of active infection. There is no redness warmth fluctuance or tenderness. Her abdominal wound looks to be healing decently She has no fever and has normal vital signs I don't see much in the way of indication to hospitalize. She just completed a large course of antibiotics couple days ago. I can't explain her leukocytosis so I reviewed the case in detail with her primary physician Dr. Alex Castrejon. He agrees that he doesn't see indication to hospitalize. He will follow this patient closely in the office. She is going to call tomorrow morning and they will advise her 1 to come in. She received potassium replacement and doesn't pain pills on prescription. If at any point she worsens such as spiking fever or other acute symptoms she can return here for evaluation. There is any developing redness or sign of infection on her body she will return right away. Her thigh cellulitis has resolved Diagnosis Primary Impression: Abdominal pain Qualified Code: R10.33 - Periumbilical abdominal pain Additional Impression: Leukocytosis Qualified Code: D72.829 - Leukocytosis, unspecified type Additional Instructions: Call Dr. Castrejon in the morning for follow-up The patient was warned about potential sedation for the medications they will receive on prescription. Get immediate evaluation for fever or developing redness on the skin Med/Other Pt SpecificInfo: Prescription(s) given Scripts Oxycodone-Acetaminophen (Percocet)5-325 mg Tab1 Tab PO Q6H PRN (PAIN) #12 TAB Ref 0 Prov:Mikel Sen MD 09/26/16 Potassium Bicarbonate Effervescent 25 Meq Tab50 Meq PO ONCE #2 TAB Ref 0 Prov:Mikel Sen MD 09/26/16 Disposition: 01 DISCHARGE HOME Condition: Stable Mikel Sen MD Sep 26, 2016 13:33
[2016-09-26 13:40] LABS: AUTOMATED NEUTROPHIL # 15.5 TH/MM3 (1.8-7.7); BASOPHIL % 0.2 % (0.0-2.0); EOSINOPHIL % 0.1 % (0.0-4.0); HEMATOCRIT 40.3 % (35.0-46.0); LYMPH % 11.9 % (9.0-44.0); LYMPHOCYTE # 2.3 TH/MM3 (1.0-4.8); MEAN CELL VOLUME 70.4 FL (80.0-100.0); MEAN CORPUSCULAR HGB CONC 32.6 % (32.0-36.0); MONO % 7.4 % (0.0-8.0); NEUT % 80.4 % (16.0-70.0); PLATELET COUNT 422 TH/MM3 (150-450); RED BLOOD COUNT 5.73 MIL/MM3 (4.00-5.30); RED CELL DISTRIBUTION WIDTH 19.5 % (11.6-17.2); WHITE BLOOD COUNT 19.3 TH/MM3 (4.0-11.0)
[2016-09-26 13:41] LABS: HEMO FLAGS AUTO DIFF
[2016-09-26 14:10] LABS: ALKALINE PHOSPHATASE 93 U/L (45-117); ALT (GPT) 48 U/L (10-53); ANION GAP 12 MEQ/L (5-15); AST (GOT) 28 U/L (15-37); BICARBONATE 25.1 MEQ/L (21.0-32.0); BLOOD UREA NITROGEN 17 MG/DL (7-18); CHLORIDE 94 MEQ/L (98-107); GLOMERULAR FILTRATION RATE 65 ML/MIN (>89); SODIUM (NA) 131 MEQ/L (136-145); TOTAL BILIRUBIN ADULT 0.6 MG/DL (0.2-1.0)
[2016-09-26 14:13] LABS: BANDS 2 % (0-6); NEUTROPHIL # MANUAL DIFF 15.2 TH/MM3 (1.8-7.7); POLYS (SEG NEUTROPHILS) 77 % (16-70); WBC DIFF SAMPLE 100
[2016-09-26 14:14] LABS: PLATELET ESTIMATE SMEAR NORMAL (NORMAL); PLATELET MORPHOLOGY NORMAL (NORMAL); SCAN/DIFF FINAL DIFF MANUAL
[2016-09-26] MEDS ORDERED: TRAM50TA PO (14:18)
[2016-09-26 14:24] LABS: POTASSIUM 2.8 MEQ/L (3.5-5.1)
[2016-09-26] MEDS ORDERED: SODIUM CHLOR 0.9% 1000 ML INJ 1,000 ML IV ONE (15:00)
[2016-09-26] MEDS ORDERED: ONDANSETRON HCL 4 MG/2 ML VIAL IV ONE (15:00)
[2016-09-26] MEDS ORDERED: IOHEXOL 350 MG/ML 10 ML VIAL (for RAD DIAG) IV ONE (15:49)
[2016-09-26] MEDS ORDERED: MORPHINE SULFATE 4 MG/ML INJ IV PUSH ONE (16:30)
--- NOTE | 2016-09-26 16:31 | RADRPT ---
EXAM DATE/TIME: 09/26/2016 15:41 [facility] COMPARISON: CT ABDOMEN & PELVIS W/O CONTRAST, December 08, 2012, 20:15. CT ABDOMEN & PELVIS W CONTRAST, September 12 17, 4:21. INDICATIONS : Upper abdominal pain for 2 weeks, now with nausea and vomiting. IV CONTRAST: 92 cc Omnipaque 350 (iohexol) IV ORAL CONTRAST: No oral contrast ingested. RADIATION DOSE: 16.80 CTDIvol (mGy) MEDICAL HISTORY: Cardiovascular disease. Hypertension. Diabetes, right-sided abdominal necrotizing fasciitis SURGICAL HISTORY: Cholecystectomy. Surgeries for necrotizing fasciitis ENCOUNTER: Initial ACUITY: 2 weeks PAIN SCALE: 5/10 LOCATION: Bilateral upper quadrant TECHNIQUE: Volumetric scanning of the abdomen and pelvis was performed. Using automated exposure control and ad justment of the mA and/or kV according to patient size, radiation dose was kept as low as reasonably achievable to obtain optimal diagnostic quality images. FINDINGS: There is a stable left adrenal nodule measuring 3.6 x 4.1 cm. The right adrenal gland is unremarkabl e. The liver is mildly prominent. No focal hepatic mass is noted. No biliary ductal dilatation is noted. The gallbladder is not visualized. The spleen is stable. The pancreas is unremarkable. The right kidney is smaller than the left. Cortical scarring is noted bilaterally and is stable. There is a stable left renal cyst measuring 9 mm. No hydronephrosis is noted. No calcified renal calculu s is noted. No bowel obstruction is noted. The urinary bladder is unremarkable. A left adnexal par tially calcified 4.8 x 2.0 cm lesion is essential stable compared to previous examination dating back to December 2012. There is minimal free fluid within the cul-de-sac. No significant lymphadenopathy is noted. There is severe osteoarthritis involving the right hip joint and mild osteoarthritis involvi ng the left hip joint. The abdominal aorta and inferior vena cava are unremarkable. CONCLUSION: 1. Stable left adrenal nodule measuring 4.1 x 3.6 cm. 2. Minimal free fluid within the cul-de-sac. 3. Stable partially calcified left adnexal lesion measuring 4.8 x 2.0 cm. this has been present sin ce at least December 2012 and is essentially stable. 4. Severe osteoarthritis involving the right hip and mild osteoarthritis involving the left hip. 5. Small right kidney with bilateral cortical scarring noted. 6. Stable left renal cyst measuring 9 mm. 7. Mild hepatomegaly. Patricio Cabral MD on September 26, 2016 at 16:09 Board Certified Radiologist. This report was verified electronically.
[2016-09-26 17:27] VITALS: BP 153/78; PULSE 65; RESP 20; O2SAT 96
[2016-09-26 17:28] VITALS: RESP 18
[2016-09-26] MEDS ORDERED: PERC5TAB12 PO (18:25)
[2016-09-26] MEDS ORDERED: EFFE25TA4 PO (18:25)
[2016-09-26] MEDS ORDERED: POTASSIUM CHLORIDE 20 MEQ CONTROLLED RELEASE TAB PO ONE (18:30)
== END 2016-09-26 20:36 | disposition home or self-care (01) ==
LOC: NEPC 12:40
DX: R10.33 Periumbilical pain (principal); D72.829 Elevated white blood cell count, unspecified; E78.00 Pure hypercholesterolemia, unspecified; E11.9 Type 2 diabetes mellitus without complications; I10 Essential (primary) hypertension; F17.210 Nicotine dependence, cigarettes, uncomplicated; Z87.442 Personal history of urinary calculi
CPT/HCPCS: 74177; 80053; 83690; 85007; 85027; 96361; 96374; 96375; 99284; J2270; J2405; J7030; Q9967